=== PATIENT | female | born 1955 | race Caucasian/White ===

== ENCOUNTER 2017-04-06 12:22 | Observation (INO) | payer MEDICARE ==
[~2017-04-06] VITALS: Ht 165.1 cm; Wt 179.6 kg
[~2017-04-06 12:22] MED LIST: ADULT LOW DOSE81 MG; AMLODIPINE BESY10 MG PO; ASPIR 8181 MG PO; CARVEDILOL12.5 MG PO; CLEOCIN HCL150 MG PO; CO Q-10100 MG PO; CO Q10100 MG PO; COZAAR 25 MG TA25 M1 PO; CRESTOR40 MG PO; Co Q10 PO; DOXYCYCLINE 10100 MG PO; FISH OIL 1,0001 EAC5 PO; FLEXERIL PO; FUROSEMIDE 80 M80 M1 PO; GABAPENTIN 100100 MG PO; GLIPIZIDE XL5 MG PO; GLUCOPHAGE XR500 MG; HYDRALAZINE 2525 MG PO; HYDROCODONE-AP1 EAC6 PO; LASIX 20 MG TAB20 MG PO; LASIX 40 MG TAB40 M2 PO; LEVEMIR SUBQ; LISINOPRIL40 MG; LYRICA 50 MG50 MG PO; LYRICA 75 MG CA75 MG PO; MULTIVITAMINS PO; MULTIVITAMINS1 EAC7 PO; NEURONTIN 300300 M1 PO; NORCO 5-325 TA1 EACH PO; NOVOLOG100 UNIT/1 SUBQ; PRAVASTATIN SOD10 MG PO; PRAVASTATIN SOD20 MG PO; PRINIVIL40 MG PO; RENA-VITE RX T1 EACH PO; RENVELA800 MG PO; TRICOR145 MG; VANCO 500500 MG/100 IV; VERAPAMIL ER180 MG; VICODIN 5-3001 EACH PO; VITAMIN B-12500 MCG PO; VITAMIN E400 UNIT PO; VITAMINC500 PO; ZAROXOLYN 5MG TA5 MG PO
[2017-04-06 13:20] LABS: ABSOLUTE BASOPHILS 0.2 thou/uL (0.0-0.2); ABSOLUTE EOSINOPHILS 0.3 thou/uL (0.0-0.7); ABSOLUTE LYMPHOCYTES 2.3 thou/uL (0.8-5.3); ABSOLUTE MONOCYTES 0.7 thou/uL (0.0-1.2); ABSOLUTE NEUTROPHILS 9.6 thou/uL (1.6-8.1); BASOPHILS 1.4 %; EOSINOPHILS 2.6 %; HEMATOCRIT 29.7 % (37.0-47.0); HEMOGLOBIN 9.2 gm/dL (12.0-15.0); LYMPHOCYTES 17.7 %; MCH 28.4 pg (26.0-34.0); MCHC 31.1 g/dL (28.0-37.0); MCV 91.3 fL (80.0-100.0); MONOCYTES 5.5 %; MPV 9.8 fl. (7.2-11.1); NUCLEATED RBCS 0 /100WBC; PLATELET COUNT* 237 thou/uL (150-400); POLYS 72.8 %; RBC 3.25 mil/uL (4.20-5.00); RDW-CV 19.3 % (10.5-14.5); WBC 13.2 thou/uL (4.0-11.0)
[2017-04-06 13:28] LABS: CALCIUM 7.7 mg/dL (8.5-10.1); CREATININE 7.1 mg/dL (0.6-1.3); POTASSIUM 4.9 mmol/L (3.5-5.1)
[2017-04-06 13:33] LABS: ALBUMIN 2.6 g/dL (3.4-5.0); TOTAL BILIRUBIN 0.5 mg/dL (<0.1-1.0); TOTAL PROTEIN 8.3 g/dL (6.4-8.2)
[2017-04-06 13:50] VITALS: BP 126/27
[2017-04-06 17:11] VITALS: BP 117/48
[2017-04-06 17:39] VITALS: BP 112/51
[2017-04-07] VITALS: BP 136/64
[2017-04-07 04:34] LABS: HEMATOCRIT 28.7 % (37.0-47.0); MCH 28.5 pg (26.0-34.0); MCHC 31.3 g/dL (28.0-37.0); MCV 91.3 fL (80.0-100.0); MPV 9.4 fl. (7.2-11.1); RBC 3.14 mil/uL (4.20-5.00); RDW-CV 19.7 % (10.5-14.5)
[2017-04-07 04:39] LABS: CALCIUM 7.6 mg/dL (8.5-10.1); CREATININE 8.5 mg/dL (0.6-1.3); POTASSIUM 5.4 mmol/L (3.5-5.1)
[2017-04-07 08:25] VITALS: BP 111/40
[2017-04-07 12:10] VITALS: BP 111/40
--- NOTE | 2017-04-27 14:35 | OP ---
[address] [address] OPERATIVE REPORT Name: HARDEEP JUNIOR Room: [address] Corwin Gomez#: [id number] Admission: 04/06/17 Attend Phys: Fish Canales MD Discharge: 04/07/17 Date of : 59 Report #: [id number] THIS REPORT FOR: //name// CC: Fish Rodriguez DATE OF SERVICE: 04/06/2017 PREOPERATIVE DIAGNOSIS: Peripheral vascular disease with gangrene, left lower extremity heel. ADDITIONAL PREOPERATIVE DIAGNOSIS: History of steal syndrome, left upper extremity with plans for future AV dialysis access. POSTOPERATIVE DIAGNOSIS: Peripheral vascular disease with gangrene, left lower extremity heel. SURGEON: Niko Marcos DO. TERMINAL OPERATOR: None. PROCEDURE: 1. Ultrasound-guided access, right common femoral artery. 2. Aortogram and left lower extremity angiogram with CO2 contrast and minimal contrast dye technique, left lower extremity, catheter position third order. 3. Aortic arch angiogram. 4. Selective catheterization of the left subclavian artery with left upper extremity arteriogram. 5. Limited angiogram, right common femoral artery. 6. StarClose, right common femoral artery. ESTIMATED BLOOD LOSS: Minimal. SPECIMEN: None. COMPLICATIONS: None. CONDITION: Stable. DISPOSITION: Home. INDICATIONS FOR THE PROCEDURE AND CONSENT: The patient is a 61-year-old female with end-stage renal disease, requiring hemodialysis. She has a Charcot deformity of her bilateral feet and has developed left heel necrosis. She has a history of peripheral vascular disease and non-compressible small vessels on [address] [place] [address] OPERATIVE REPORT Name: HARDEEP JUNIOR Room: [address] Jason#: [id number] Admission: 04/06/17 Attend Phys: Fish Canales MD Discharge: 04/07/17 Date of : 59 Report #: [id number] VINNIE. She also has diminished monophasic signals on physical exam and absent signal over posterior tibial. Additionally, she has a history of left upper extremity dialysis access that resulted in steal syndrome. There was concern and possible brachial artery stenosis may be reason for this steal. Recommendation for left lower extremity angiogram and possible intervention and attempt for salvage of her left foot as well as left upper extremity arteriogram at the same time to evaluate for brachial arch stenosis was recommended. Risks and benefits were discussed, infection, bleeding, need for additional procedures, stroke, heart attack, . The patient wished to proceed, was consented and scheduled. PROCEDURE IN DETAIL: After timeout was performed, the patient was placed in supine position with sterile prep and drape of the anterior abdomen, bilateral groins, bilateral thighs. her large pannus was taped prior to being sterilely prepped and draped. The right groin was then interrogated with ultrasound and the common femoral artery was identified and Seldinger technique was used to place a 6-Palestinian sheath. Glidewire Advantage and Omniflush catheter were advanced into the infrarenal aorta and CO2 angiogram was performed as a prolonged procedure with potentially 2 different extremities was planned and CO2 was used to avoid unnecessary contrast loads. CO2 arteriogram demonstrated the aorta, bilateral common internal and external iliac arteries to be patent. The Omniflush catheter was brought down to the aortogram position and left lower extremity angiogram was performed to the level of the knee. This demonstrated the common femoral, profunda and superficial femoral artery to be widely patent without flow limitation, popliteal artery was normal visualized. The Glidewire Advantage and Omniflush catheter were then advanced into the distal superficial femoral artery under fluoroscopic guidance and CO2 angiography performed. This did demonstrate the popliteal artery to be patent. The tibial vessels were visualized and the posterior tibial vessel origin was absent. At this point, I used 20% contrast for the tibial vessels. The tibial vasculature demonstrated the anterior tibial artery to be patent to the ankle without flow limitation or stenosis. The peroneal vessel was also patent but small. The posterior tibial vessel was not present and the origin was not visualized and no distal reconstitution was identified. Distal angiography demonstrated minimal flow past the mid foot from the anterior tibial artery predominantly. There was really no flow to the heel in the area of necrosis. I determined that there was no intervention that would improve this patient's blood flow or outcome regarding the wound. I then turned my attention to the left upper extremity arteriogram. I then advanced the Glidewire Advantage and Omniflush [place] [address] OPERATIVE REPORT Name: JUNIORHARDEEP E Room: [address] Corwin Gomez#: [id number] Admission: 04/06/17 Attend Phys: Fish Canales MD Discharge: 04/07/17 Date of : 59 Report #: [id number] arch after giving the patient 6000 units of heparin and allowing for 3 minutes. I then performed a thoracic arch angiogram, which demonstrated the aorta to be widely patent as were the origins of the innominate, left carotid, and left subclavian vessel. This was simply done to identify the origin of left subclavian vessel for selective catheterization. I then was able to be negotiate the Omniflush catheter and Glidewire Advantage into the subclavian vessel and a selective left upper extremity arteriogram was performed. This demonstrated the subclavian, axillary, and brachial arteries to be widely patent without flow limitation or stenosis. The brachial artery did appear somewhat small. I did not find anything other than the small caliber or vessel to account for her significant steal and pain that she had previously. Having identified no opportunity for intervention, I replaced the Glidewire Advantage to the catheter and then removed both from the patient. I then performed a limited angiogram of the right common femoral artery and it was noted to be appropriate for closure device, I then selected closure device and deployed in a standard fashion and pressure was held for additional hemostasis. The patient tolerated the procedure well. All lap, needle and instrument counts correct. <ELECTRONICALLY SIGNED> By: Niko Marcos DO 04/27/17 1435 1631 [id number] Marcos DO /nt
== END 2017-04-07 13:30 | disposition home health service (06) ==
LOC: M.INT 12:22 → M.3W 15:28
PROVIDERS: Surgery; ADMIT Internal Medicine
DX: I73.9 Peripheral vascular disease, unspecified (principal); E11.621 Type 2 diabetes mellitus with foot ulcer; L97.429 Non-pressure chronic ulcer of left heel and midfoot with unspecified severity; T82.9XXA Unspecified complication of cardiac and vascular prosthetic device, implant and graft, initial encounter; E78.00 Pure hypercholesterolemia, unspecified; E66.01 Morbid (severe) obesity due to excess calories; E11.22 Type 2 diabetes mellitus with diabetic chronic kidney disease; I12.0 Hypertensive chronic kidney disease with stage 5 chronic kidney disease or end stage renal disease; N18.6 End stage renal disease; Z99.2 Dependence on renal dialysis; Z79.4 Long term (current) use of insulin

== ENCOUNTER 2017-04-15 16:15 | Emergency (ER) | payer MEDICARE ==
[~2017-04-15] VITALS: Ht 165.1 cm; Wt 104.3 kg
[2017-04-15 18:05] VITALS: BP 129/66
== END 2017-04-15 18:05 | disposition home or self-care (01) ==
LOC: M.ERS 16:15
DX: T82.838A Hemorrhage due to vascular prosthetic devices, implants and grafts, initial encounter (principal); I12.9 Hypertensive chronic kidney disease with stage 1 through stage 4 chronic kidney disease, or unspecified chronic kidney disease; E11.22 Type 2 diabetes mellitus with diabetic chronic kidney disease; N18.4 Chronic kidney disease, stage 4 (severe); Z99.2 Dependence on renal dialysis; E78.00 Pure hypercholesterolemia, unspecified; Z79.4 Long term (current) use of insulin; Z85.828 Personal history of other malignant neoplasm of skin; Z87.01 Personal history of pneumonia (recurrent); Z98.890 Other specified postprocedural states; Y92.89 Other specified places as the place of occurrence of the external cause

== ENCOUNTER 2017-05-02 13:20 | Inpatient (IN) | payer MEDICARE ==
[~2017-05-02] VITALS: Ht 165.1 cm; Wt 107.1 kg
[2017-05-02 13:43] VITALS: BP 137/76
[2017-05-02 14:19] LABS: ABSOLUTE EOSINOPHILS 0.3 thou/uL (0.0-0.7); ABSOLUTE MONOCYTES 0.7 thou/uL (0.0-1.2); ABSOLUTE NEUTROPHILS 10.4 thou/uL (1.6-8.1); BASOPHILS 0.3 %; EOSINOPHILS 2.5 %; HEMATOCRIT 25.8 % (37.0-47.0); HEMOGLOBIN 8.1 gm/dL (12.0-15.0); LYMPHOCYTES 14.8 %; MCH 28.9 pg (26.0-34.0); MCHC 31.6 g/dL (28.0-37.0); MCV 91.5 fL (80.0-100.0); MONOCYTES 5.4 %; MPV 8.2 fl. (7.2-11.1); NUCLEATED RBCS 0 /100WBC; PLATELET COUNT* 330 thou/uL (150-400); RBC 2.82 mil/uL (4.20-5.00); RDW-CV 19.9 % (10.5-14.5); WBC 13.6 thou/uL (4.0-11.0)
[2017-05-02 14:28] LABS: APTT 30.6 Seconds (25.0-31.3); INR 1.1; PROTIME 10.9 Seconds (9.20-11.50)
[2017-05-02 14:30] VITALS: BP 128/66
[2017-05-02 14:31] LABS: ANION GAP 18 mmol/L (7-16); BUN 59 mg/dL (7-18); CHLORIDE 96 mmol/L (98-107); CO2 24 mmol/L (21-32); CREATININE 12.6 mg/dL (0.6-1.3); GLUCOSE 123 mg/dL (70-99); SODIUM 138 mmol/L (136-145)
[2017-05-02 14:33] LABS: CALCIUM 5.8 mg/dL (8.5-10.1)
[2017-05-02 14:35] LABS: POTASSIUM 7.6 mmol/L (3.5-5.1)
[2017-05-02 14:36] LABS: ALBUMIN 2.3 g/dL (3.4-5.0); ALKALINE PHOSPHATASE 102 U/L (46-116); SGOT 19 U/L (15-37); TOTAL BILIRUBIN 0.3 mg/dL (<0.1-1.0); TOTAL PROTEIN 7.5 g/dL (6.4-8.2); TROPONIN-I LEVEL <0.06 ng/mL (<0.06)
--- NOTE | 2017-05-02 16:52 | EKG ---
[place] [address] ELECTROCARDIOGRAM REPORT Name: JUNIORHARDEEP Room: [address] ADM IN .R.#: [id number] Admission: 05/02/17 Attend Phys: Laith Hollis MD Discharge: Date of : 59 Report #: [id number] THIS REPORT FOR: //name// [facility] ED Test Date: 2017-05-02 Test Time: 13:52:11 Pat Name: HARDEEP JUNIOR Department: Room: [facility] Gender: F Conference Services Manager: Mingo CARRIZALES : 1955 Requested By: Jeremie Awan Order Number: [id number] MD: Mono Davey Measurements Intervals [place] Rate: 85 P: SD: QRS: -33 QRSD: 151 T: 100 QT: 478 QTc: 569 Interpretive Statements sinus rhythm with 1st degree av block Left bundle branch block Compared to ECG 04/02/2016 00:14:08 Short SD interval no longer present Electronically Signed On 05-02-2017 16:52:06 SYRUP BLENDER by Mono Davey [email or web address] <ELECTRONICALLY SIGNED> By: Mono Davey MD, FAC 05/02/17 1652 1352 1352 Mono Davey MD, [facility] /EPI
[2017-05-02 17:44] LABS: POTASSIUM 6.8 mmol/L (3.5-5.1)
[2017-05-02 17:45] LABS: CALCIUM 5.6 mg/dL (8.5-10.1)
--- NOTE | 2017-05-02 19:00 | NUR ---
PROGRESSING TOWARDS GOALS. CARDIZEM AND LEVOPHED TURNED OFF WITHIN THE LAST HOUR. VSS AT THIS TIME. FLUIDS D/C'D AND ORDER RECEIVED FROM CARDIOLOGY TO D/C CENTRAL LINE. PT UP TO BEDSIDE COMMODE SEVERAL TIMES THIS AFTERNOON. NO OTHER COMPLAINTS DURING THE DAY. PT ATE VERY LITTLE AND REPORTS NO APPETITE.
[2017-05-02 20:00] VITALS: BP 98/85
[2017-05-02 22:00] VITALS: BP 104/46
[2017-05-03] VITALS (7 sets, daily range): BP systolic 95–141; BP diastolic 42–59
[2017-05-03 04:54] LABS: ABSOLUTE BASOPHILS 0.1 thou/uL (0.0-0.2); ABSOLUTE EOSINOPHILS 0.3 thou/uL (0.0-0.7); ABSOLUTE LYMPHOCYTES 1.8 thou/uL (0.8-5.3); ABSOLUTE MONOCYTES 0.7 thou/uL (0.0-1.2); ABSOLUTE NEUTROPHILS 8.8 thou/uL (1.6-8.1); EOSINOPHILS 2.8 %; HEMATOCRIT 24.6 % (37.0-47.0); HEMOGLOBIN 7.9 gm/dL (12.0-15.0); LYMPHOCYTES 15.2 %; MCH 29.4 pg (26.0-34.0); MCHC 32.2 g/dL (28.0-37.0); MCV 91.2 fL (80.0-100.0); MONOCYTES 6.2 %; MPV 8.2 fl. (7.2-11.1); NUCLEATED RBCS 0 /100WBC; PLATELET COUNT* 304 thou/uL (150-400); POLYS 74.8 %; RDW-CV 20.4 % (10.5-14.5); WBC 11.8 thou/uL (4.0-11.0)
[2017-05-03 05:10] LABS: CALCIUM 6.6 mg/dL (8.5-10.1)
[2017-05-03 05:25] LABS: CREATININE 7.4 mg/dL (0.6-1.3); POTASSIUM 5.7 mmol/L (3.5-5.1)
[2017-05-03 06:18] LABS: ANISOCYTOSIS 2+; PLATELET ESTIMATE ADEQUATE
[2017-05-03 06:19] LABS: POLYCHROMASIA 1+
--- NOTE | 2017-05-03 07:43 | NUR ---
PATIENT PROGRESSING TOWARDS GOALS. K+ TRENDING DOWN. PT DIALYSIS 3L OFF. TOLERATED WELL. BP, HR, RR, O2 REMAINED WNL. PT HAD NO ACUTE CHANGES OVER NIGHT. VOIDED 20ML. TEMP DIALYSIS ON RIGHT GROIN INTACT. PT IS VERY TEARFUL. CONSTENT EDUCATION AND REINFORCEMENT NEEDED TO EASE ANXIETY. PT HAS WOUND IN LOWER EXTREMITIES. PICTURES IN CHART. WOUND CONSULT COMPLETED. WILL CONTINUE TO MONITOR. POSSIBLE TELE STATUS.
--- NOTE | 2017-05-03 11:27 | NUR ---
CHART REVIEWED, SPOKE WITH PT. PT LIVES ALONE, STATES HAS SUPPORTIVE FRIENDS THAT HELP HER. SHE DIALYZES M-W-F AT [facility]. SHE GETS TO DIALYSIS BY [facility]. SHE SAID THAT HER FOOT DOCTOR DOESN'T WANT HER TO PUT ANY WEIGHT ON HER FOOT, 'I HAVE A WOUND AND HE'S AFRAID IT WILL SPLIT OPEN.' PT SAID SHE TRANSFERS INDEP INTO HER W/C, IS ABLE TO GET AROUND HER HOUSE IN HER W/C, ABLE TO TRANSFER TO HER SHOWER CHAIR, TRANSFER TO THE TOILET, ETC. SHE HAS A TREE AND SHRUB TECHNICIAN THAT COMES EVERY TUESDAY TO CLEAN. SHE HAS PRIVATE DUTY THRU [employer] THAT COME FOR SEVERAL HOURS ON AND AND HELP HER WITH COOKING, SHOPPING, ETC. PT PLANS ON RETURNING HOME ALONE, SHE SAID 'EVERYTHING IS SET AT HOME AND I DO GREAT.' EXPLAINED ROLE OF CASE MGT, WILL CONTINUE TO FOLLOW.
--- NOTE | 2017-05-03 11:31 | NUR ---
RECEIVED REPORT FROM HARLAN MULLEN. ASSESSMENT CHARTED. AFEBRILE. VITALS STABLE. PT TELE STATUS. WILL CONTINUE TO MONITOR.
[2017-05-03 14:12] LABS: HEPATITIS B SURFACE AG Negative (Negative)
--- NOTE | 2017-05-03 17:17 | NUR ---
WOUND CARE NOTE: CONSULT RECEIVED FOR DIABETIC WOUND. PATIENT PRESENTS WITH A UNSTAGEABLE PRESSURE ULCER TO HER LEFT FOOT, MEDIALLY. WOUND MEASURES 4X8.5X0.1. 99% OF THE WOUND IS BLACK, DRY, ESCHAR. 1% WITH YELLOW, MOIST TISSUE. WOUND WAS CLEANSED WITH WOUND CLEANSER, PATTED DRY. PAINTED WITH BETADINE AND ALLOWED TO DRY. FOOT IS OFFLOADED APPROPRIATELY WITH PILLOWS. EDUCATED PATIENT ON KEEPING FOOT UP OFF OF THE BED TO ASSIST WITH HEALING, COMMUNICATED UNDERSTANDING. PATIENT COMMUNICATED UNDERSTANDING OF GOOD NUTRITION FOR WOUND HEALING. EDUCATED PATIENT ON FINDINGS OF WOUND, COMMUNICATED UNDERSTANDING. RECOMMEND OFFLOAD HEEL PAINT WITH BETADINE M-- ENCOURAGE GOOD NUTRITION AND HYDRATION TIGHT BLOOD GLUCOSE CONTROL VASCULAR TO ASSESS HEEL WOUND-SEES DR. ZUÑIGA IN WOUND CENTER
--- NOTE | 2017-05-03 18:08 | NUR ---
PT TRANSFERED TO UNIT AROUND 1730 PT IS ALERT AND ORIENTED X 3-4 PT DENIES PAIN OR SOA PT IS INCONTIENT OF BOWEL AND BLADDER PT ON DIALYSIS PT HAS WOUND ON LEFT HEEL PT HAS BOOT ON RIGHT LEG FROM PREVIOUS FRACTURE PT REFUSES TO LET STAFF TAKE BOOT OFF PT POTASSIUM IS ELEVATED PT HAS KAYEXULATE PT IS REFUSING TO TAKE KAYEXULATE KEEP REEDUCATING PT ON THE IMPORTANCE OF TAKING MEDICATION, PT BEHAVIOR IS INAPPRPIRATE PT IS UNCORRAPATIVE, PT IS SR ON MONITOR, WILL CONTINUE TO MONITOR
--- NOTE | 2017-05-03 18:36 | NUR ---
REPORT GIVEN TO JERMAINE RUIZ RN. PT TRANSFERRED TO ROOM 230 AROUND 1700. BELONGINGS WITH PT AND ALL QUESTIONS ANSWERED.
[2017-05-04 04:03] VITALS: BP 104/53
[2017-05-04 05:24] LABS: ABSOLUTE BASOPHILS 0.1 thou/uL (0.0-0.2); ABSOLUTE EOSINOPHILS 0.3 thou/uL (0.0-0.7); ABSOLUTE LYMPHOCYTES 2.3 thou/uL (0.8-5.3); ABSOLUTE NEUTROPHILS 6.6 thou/uL (1.6-8.1); BASOPHILS 1.2 %; EOSINOPHILS 3.2 %; HEMATOCRIT 24.2 % (37.0-47.0); HEMOGLOBIN 7.9 gm/dL (12.0-15.0); LYMPHOCYTES 22.3 %; MCH 29.9 pg (26.0-34.0); MCHC 32.5 g/dL (28.0-37.0); MCV 91.9 fL (80.0-100.0); MONOCYTES 9.7 %; MPV 8.1 fl. (7.2-11.1); NUCLEATED RBCS 0 /100WBC; PLATELET COUNT* 246 thou/uL (150-400); POLYS 63.6 %; RBC 2.64 mil/uL (4.20-5.00); RDW-CV 20.4 % (10.5-14.5); WBC 10.3 thou/uL (4.0-11.0)
[2017-05-04 05:37] LABS: ALBUMIN 2.1 g/dL (3.4-5.0); CALCIUM 6.6 mg/dL (8.5-10.1); POTASSIUM 5.8 mmol/L (3.5-5.1); TOTAL BILIRUBIN 0.4 mg/dL (<0.1-1.0); TOTAL PROTEIN 6.9 g/dL (6.4-8.2)
[2017-05-04 05:40] LABS: CREATININE 9.5 mg/dL (0.6-1.3)
[2017-05-04 06:38] LABS: ANISOCYTOSIS 2+; POLYCHROMASIA 1+
[2017-05-04 07:54] VITALS: BP 124/42
--- NOTE | 2017-05-04 07:56 | NUR ---
PT IS ABLE TO COMMUNICATE HER NEEDS TO STAFF EFFECTIVELY, BUT OFTEN CRIES OUT INSTEAD OF USING HER CALL LIGHT. CURRENT PAIN MEDICATION REGIMEN HAS BEEN ADEQUATE FOR CONTROLLING HER PAIN UP TO THIS TIME. SHE CAN BE VERY SENSITIVE TO BEING MOVED AND WILL NOT LET ANYONE TAKE OFF HER PURPLE BOOT. SHE IS TENTATIVELY SCHEDULED TO HAVE HEMODIALYSIS LATER TODAY; SHE HAS BEEN CURRENTLY RECEIVING DIALYSIS ON A M/W/F SCHEDULE.
--- NOTE | 2017-05-04 09:10 | NUR ---
VSS, ASSUMED CARE IN THE AM, ASSESSMENT PERFORMED AND CHARTED, FALL PRECAUTIONS IN PLACE AND CALL LIGHT IN REACH, PT IS UP WITH MAX ASSIST AND HAS WOUND ON LEFT HEAL AND FRACTUR ON RIGHT ANKEL, BOOT IS ON RIGHT AND OILLOW UNDER LEFT LEG WITH FOOT OFF BED, PT IS ON 2L NC AND STATES PAIN IN LEGS/FEET. SHE IS TRACING SR ON THE MONITOR AND HER GAOL IS TO SIT UP, WORK WITH PT/OT AND GET CLEANED UP.
[2017-05-04 12:03] VITALS: BP 81/43
[2017-05-04 14:43] VITALS: BP 81/43
--- NOTE | 2017-05-04 15:01 | CON ---
[facility] [address] [place] [address] CONSULTATION Name: HARDEEP JUNIOR Room: [address] IN .R.#: [id number] Admission: 05/02/17 Attend Phys: Laith Hollis MD Discharge: Date of : 59 Report #: [id number] THIS REPORT FOR: //name// CC: Laith Patel Parker DATE OF SERVICE: 05/02/2017 REQUESTING PHYSICIAN: Laith Hollis M.D. REASON FOR CONSULTATION: Management of the patient with end-stage renal disease for dialysis and hyperkalemia. HISTORY OF PRESENT ILLNESS: The patient is a 61-year-old female with medical history significant for end-stage renal disease. She presents to the hospital on Tuesday with not working dialysis catheter. The patient once found to have very significant hyperkalemia and was emergently dialyzed yesterday. She had temporary dialysis catheter placed yesterday and that will be converted to tunneled dialysis catheter tomorrow by Vascular Surgeon. PAST MEDICAL HISTORY: Significant for peripheral vascular disease, end-stage renal disease and anemia. She also had diabetes mellitus, history of hypertension. FAMILY HISTORY AND SOCIAL HISTORY: Reviewed. No current alcohol abuse and tobacco abuse. PHYSICAL EXAMINATION: GENERAL: Examined in Intensive Care Unit. She is awake, alert. VITAL SIGNS: Reviewed. NECK: Fatty. LUNGS: Clear. CARDIOVASCULAR: Regular rate. ABDOMEN: Obese, soft. EXTREMITIES: Lower extremities without edema. SKIN: Her skin is pale. LABORATORY DATA: Report revealed potassium 7.6 yesterday and today was 5.7. Her BUN 29, creatinine 7.4. Her hemoglobin 7.9. ASSESSMENT: A 61-year-old female with end-stage renal disease, admitted for missed dialysis treatments, hyperkalemia and nonfunctioning tunneled dialysis catheter. She had temporary dialysis catheter placed [place] [address] CONSULTATION Name: HARDEEP JUNIOR Room: [address]#: [id number] Admission: 05/02/17 Attend Phys: Laith Hollis MD Discharge: Date of : 59 Report #: [id number] dialyze if potassium is better. We will give her more Kayexalate today and dialyze her tomorrow. Vascular will place tunneled dialysis catheter tomorrow. <ELECTRONICALLY SIGNED> By: Jarvis Rothman MD 05/04/17 1501 1458 0031Ahayden Rothman MD /ABBY
[2017-05-04 16:00] VITALS: BP 106/29
--- NOTE | 2017-05-04 19:59 | NUR ---
VSS, PT WAS TAKEN TO DIALYSIS, NO STATUS CHANGE AT THIS TIME AND HOURLY ROUNDS COMPLETED,
[2017-05-05] VITALS (9 sets, daily range): BP systolic 90–111; BP diastolic 30–58
--- NOTE | 2017-05-05 05:14 | NUR ---
PT IS ABLE TO COMMUNICATE HER NEEDS TO STAFF EFFECTIVELY, HOWEVER, SHE YELLS OUT AND DOES NOT USE THE CALL LIGHT MOST OF THE TIME. CURRENT PAIN MEDICATION REGIMEN HAS BEEN ADEQUATE FOR CONTROLLING HER PAIN UP TO THIS TIME. SHE HAD A HEMODIALYSIS RUN ON 05/04/17, 2.5L OFF. SHE HAS BEEN NPO SINCE MIDNIGHT FOR A NEW TEMPORARY DIALYSIS CATH PLACEMENT LATER TODAY.
[2017-05-05 05:46] LABS: ALBUMIN 2.1 g/dL (3.4-5.0); CALCIUM 7.5 mg/dL (8.5-10.1); CREATININE 6.9 mg/dL (0.6-1.3); POTASSIUM 5.2 mmol/L (3.5-5.1); TOTAL BILIRUBIN 0.5 mg/dL (<0.1-1.0); TOTAL PROTEIN 7.2 g/dL (6.4-8.2)
--- NOTE | 2017-05-05 11:00 | NUR ---
VSS, ASSUMED CARE IN THE AM, ASSESSMENT PERFORMED AND CHARTED FALL PRECAUTIONS IN PLACE AND CALL LIGHT IN REACH, PT IS MAX ASSIST UP AND REFUSES TO GET UP TO SIDE OF BED, PT STATES HAVING A LOT OF PAIN IN LEGS, 10 OUT OF 10 WHEN MOVED, PT GOAL IS TO SIT UP, DIALYSIS CATH IN RIGHT CHEST AND GRION NOTED, PT IS ON 1L NC AND IS A&O3-4 FORGEFUL, LEFT FOOT HAS HEAL WOUND AND RIGHT FOOT HAS SURGETY BOOT, PT REFUSES TO LET ME TAKE OFF BOOT STATING IT HERTS TO MUCH, WILL FOLLOW WITH PLAN OF CARE.
--- NOTE | 2017-05-05 11:33 | NUR ---
CONTINUE TO FOLLOW, MET WITH PT. TO HAVE TUNNELED CATH TODAY AND POSSIBLE DC TOMORROW. PT STATES SHE HAS HOME O2 AT NIGHT THRU [facility] AND IS FOLLOWED AT HOME BY [facility]. CONFIRMED WITH D[facility] THAT PT IS ON SERVICE, THEY WILL NEED NEW ORDERS AT DC. PT STATES SHE USES [facility] TO GET TO DIALYSIS MWF. CALL TO [facility], THEY WILL NEED H/P, FLOW SHEETS AND DC ORDERS FAXED TO THEM WELL CALL WHEN DC'D. WILL FOLLOW [facility] [phone] FAX [phone] [facility] [phone] FAX [phone]
--- NOTE | 2017-05-05 18:54 | NUR ---
VSS, PT IS PROGRESSIING TOWARDS, PT IS ON RA, TRACINGS SR ON THE MONIOTR BED REST REFUSES BED TURNS, WILL NOT LET ANYONE TAKE OFF RIGHT SURGICAL BOOT, RIGHT GRION DIALYSIS CATH WAS TAKEN OUT SITE IS C/D/I, PT HAS RIGHT CHEST CATH IN PLACE, PT IS A&O3-4 BUT FORGETFUL, STATES LEG PAIN AND HOURLY ROUNDS COMPLETED.
[2017-05-06] VITALS (8 sets, daily range): BP systolic 88–127; BP diastolic 33–63
--- NOTE | 2017-05-06 04:21 | NUR ---
ASSUMED PT CARE AT 1930, PT IS A&OX4, PT IS TRACING NSR ON THE MONITOR, ON 1L NC SATTING MID TO HIGH 90'S. PT C/O PAIN PRN PAIN MEDICATIOSN GIVEN PER JUN. PT HAS A TEMP DIALYSIS CATH INSERTED INTO HER RIGTH CHEST. PT HAS HEEL WOUNDS. PT WAS C/O OF RIGHT LEG HURTING, THIS RN ASKED IF I WAS ABLE TO TAKE OFF HER BOOT, THE PT STATED YES, BUT SHE SHE WANTED HER CHRIS WRAP TO STAY IN [place]. HEELS ELEVATED ON PILLOWS, PT IS TURNED AND REPOSITIONED EVERY 2 HOURS TO PREVENT SKIN BREAKDOWN. BED IN LOW POSITION, CALL LIGHT IN REACH, BED ALARM ON, YELLOW ARM BAND AND SOCKS IN PLACE. HOURLY ROUNDING COMPLETED FOR PT SAFETY.
--- NOTE | 2017-05-06 09:00 | NUR ---
VSS, ASSUMED CARE IN THE AM, ASSESSMENT PERFORMED AND CALL LIGHT IN REACH, PT IS TRACING SR ON THE MONITOR, ON 1L NC AND A&O4, PT HAS PAIN IN LOWER LEGS AND IS BED REST, PT GOAL IS TO SIT UP TO SIT OF BED, PT IS TO HAVE DIALYSIS TODAY, SHE REFUSES BED TURNS AT TIMES, WILL FOLLOW WITH PLAN OF CARE,
[2017-05-06 09:58] LABS: ABSOLUTE BASOPHILS 0.2 thou/uL (0.0-0.2); ABSOLUTE EOSINOPHILS 0.3 thou/uL (0.0-0.7); ABSOLUTE LYMPHOCYTES 2.4 thou/uL (0.8-5.3); ABSOLUTE NEUTROPHILS 8.2 thou/uL (1.6-8.1); BASOPHILS 1.6 %; EOSINOPHILS 2.8 %; HEMATOCRIT 24.5 % (37.0-47.0); HEMOGLOBIN 7.6 gm/dL (12.0-15.0); LYMPHOCYTES 19.8 %; MCHC 31.1 g/dL (28.0-37.0); MCV 93.3 fL (80.0-100.0); MONOCYTES 7.9 %; MPV 8.9 fl. (7.2-11.1); NUCLEATED RBCS 0 /100WBC; PLATELET COUNT* 207 thou/uL (150-400); POLYS 67.9 %; RBC 2.63 mil/uL (4.20-5.00); RDW-CV 20.7 % (10.5-14.5); WBC 12.1 thou/uL (4.0-11.0)
[2017-05-06 10:12] LABS: ALBUMIN 2.3 g/dL (3.4-5.0); CALCIUM 7.4 mg/dL (8.5-10.1); TOTAL BILIRUBIN 0.5 mg/dL (<0.1-1.0)
[2017-05-06 10:24] LABS: ANISOCYTOSIS 2+; HYPOCHROMASIA 2+; PLATELET ESTIMATE ADEQUATE
--- NOTE | 2017-05-06 13:28 | NUR ---
TALKED WITH WOUND CARE NURSE AND PT. IS ABLE TO TRANSFER ON L FOREFOOT FOR PIVOT TRANSFERS AT THIS TIME. CALLED [facility] AND LEFT A MESSAGE FOR DR. HEADLEY TO CLARIFY R LE WB STATUS DUE TO ANKLE FX.
--- NOTE | 2017-05-06 16:12 | NUR ---
IGOR SPOKE TO DELVIN AT [facility] AND SHE INFROMS THAT THE FACILITY IS ABLE TO ACCEPT THE PATIENT TOMORROW (2). CM SPOKE TO THE PATIENT AND THE RN IN-CHARGE OF THE PATIENT TO INFORM OF THIS AND THEY ARE IN AGREEMENT. CM WILL REMAIN AVAILABLE TO ASSIST AND FOLLOW NEEDED.
--- NOTE | 2017-05-06 17:31 | NUR ---
VSS, PT IS PROGRESSING TOWARDS, PT IS TO BE D/C TO SNF TOMORROW, SHE IS IN DIALYSIS AT THIS TIME, SHE WORKED WITH PT/OT AND SAT UP TO BEDSIDE FOR 5 MIN AND THEN RIGHT BACK IN BED, HOURLY ROUNDS COMPLETED AND IS TRACING SR ON THE MONITOR, WILL FOLLOW WITH PLAN OF CARE AND CHARTED CHECKS.
[2017-05-07] VITALS: BP 109/43; BP 123/54
[2017-05-07 04:00] VITALS: BP 105/49
--- NOTE | 2017-05-07 05:06 | NUR ---
ASSUMED CARE OF PATIENT AT APPROX 2029 THE PATIENT REMAINS SR ON THE MONITOR O2 SAT MAINTAINED ON 2L NC CONTINUES BEDREST DOES NOT TOLERATE TOUCH WITH REPOSITIONING ET ADL CARE WELL CRIES OUT AND REPEATS PHRASES AT REST CHILD LIKE BEHAVIOR NOTED TO THE ROUTINE REGIMEN CONTINUES TO BE EFFECTIVE FOR SX MANAGEMENT SAFETY INTERVENTIONS CONTINUE BED LOWERED WHEELS LOCKED CALL LIGHT IN REACH SIDE RAILS UP REPORT TO BE GIVEN TO ONCOMING RN
[2017-05-07 08:00] VITALS: BP 115/50
--- NOTE | 2017-05-07 10:26 | NUR ---
ASSUMED PT CARE AT 0730, FULL ASSESMENT DONE CHARTED. PT A/O X3, FORGETFUL AT TIMES. PT STATES PAIN IS BETTER, SHE C/O PAIN IN LEGS AT 4/10. PTS VSS, SR ON MARY MONITOR, 97% ON 2L O2. PT ASKING ABOUT DISCHARGING TODAY TO A "REHAB FACILITY". DR CLAROS TO SEE PT TODAY. FALL PRECATUIONS IN PLACE. PT USES CALL LIGTH APPRORPIATLY. WILL CONTINUE WITH PLANOF CARE.
[2017-05-07 12:22] VITALS: BP 110/42
--- NOTE | 2017-05-07 12:40 | NUR ---
IGOR SPOKE TO THE RN IN-CHARGE OF THE PATIENT AND SHE INFORMS THAT THE PATIENT HAS DISCHARGE ORDERS AND WILL NEED AMBULANCE TRANSFER. IGOR SPOKE TO DELVIN MORALES TO INFORM THAT THE PATIENT IS READY TO D/C AND WILL ARRIVE BY AMBULANCE TRANSPORT. IGOR CONTACTED [facility], FAXED THE PATIENT TRANSFER FORM AND TO INFORM OF THE NEED FOR TRANSPORTATION AT 1400. CM SPOKE TO THE PATIENT TO INFORM OF HER DISCHARGE. PATIENT IN AGREEMENT. IGOR SPOKE TO THE RN IN-CHARGE OF THE PATIENT AND INFORMED OF THE PATIENTS TIME OF TRANSPORT AND WHERE TO CALL REPORT. CN WILL REMAIN AVAILABLE TO ASSIST AND FOLLOW NEEDED.
--- NOTE | 2017-05-07 13:37 | NUR ---
CM SPOKE TO THE PATIENT TO DISCUSS DISCHARGE PLANNING NEEDS AND CHOICE OF HH. PATIENT CHOSE [facility] FOR HH. CM SPOKE TO NGHIA AT [facility] TO INFORM OF THE REFERRAL AND FAXED THE PATIENTS CLINICAL INFO. NGHIA RETURNS CALL AND INFORMS THAT [facility] IS ABLE TO ACCEPT THE PATIENT AND WILL SEE HER AT HER HOME TOMORROW. CM WILL REMAIN AVAILABLE TO ASSIST AND FOLLOW NEEDED.
--- NOTE | 2017-05-07 14:17 | OP ---
[address] [address] OPERATIVE REPORT Name: HARDEEP JUNIOR Room: [address] IN .R.#: [id number] Admission: 05/02/17 Attend Phys: Laith Hollis MD Discharge: Date of : 59 Report #: [id number] THIS REPORT FOR: //name// CC: Laith Patel Parker DATE OF SERVICE: 05/05/2017 PREOPERATIVE DIAGNOSIS: End-stage renal disease. POSTOPERATIVE DIAGNOSIS: End-stage renal disease. OPERATION: Right IJ tunneled dialysis catheter exchange over the wire. SURGEON: Chacho Wesley DO. DECAL TRANSFERRER: None. ANESTHESIA: Sedation with local. ESTIMATED BLOOD LOSS: Less than 10 mL. FLUIDS: None. URINE OUTPUT: None. SPECIMENS: None. COMPLICATIONS: None. FINDINGS: The right IJ tunneled dialysis catheter was thrombosed. The wires easily passed through the IVC. The catheter was tunneled over these wires under fluoroscopic guidance to ensure no kinks or twist. The catheter aspirated and flushed well without issue. CLINICAL HISTORY: The patient is a 61-year-old woman with end-stage renal disease. She has undergone multiple dialysis interventions, multiple catheters in both the left and right internal jugular veins, multiple access creations. Her right IJ catheter is thrombosed and currently dialyzing through a temporary femoral line in the right groin. I have been asked to exchange the tunnel line. DESCRIPTION OF PROCEDURE: After informed consent has been obtained, the patient was taken to the angio suite, placed on the angio bed in the supine position. She was administered sedation by the nurse at my discretion for a total of 20 minutes. A full timeout was performed identifying correct patient and procedure after the right neck was prepped and draped in usual sterile [place] [address] OPERATIVE REPORT Name: HARDEEP JUNIOR Room: [address] IN [facility]#: [id number] Admission: 05/02/17 Attend Phys: Laith Hollis MD Discharge: Date of : 59 Report #: [id number] cut the ports from the previously placed tunneled dialysis catheter. I used 2 stiff angled Glidewires, one down each port, was passed into the right ventricle. I then anesthetized the skin and subcutaneous tissues around the tunneled track with about 20 mL of lidocaine anesthetic. I then removed the catheter over the wires easily without issue. I then replaced the new 19-cm RetrO tunneled dialysis catheter over the stiff-angle Glidewires through the previous track and passed easily over the wires and this was done under fluoroscopic guidance. The catheter was positioned on the right atrium SVC junction. The wires and stylets were removed. The catheter was then tailored to length. Both ports were applied. Both ports aspirated and flushed well. Both ports were then packed with concentrated heparin. The catheter was then secured to the chest wall with 3-0 Monocryl suture and sterile dressing was applied. All sponge, sharp and instrument counts reported correct times 2. She tolerated the procedure well and was transferred to her room in stable condition. <ELECTRONICALLY SIGNED> By: Niko Marcos DO 05/07/17 1417 1339 [id number] Wesley DO /nt
--- NOTE | 2017-05-07 14:18 | OP ---
[address] [address] OPERATIVE REPORT Name: JUNIORHARDEEP E Room: [address] IN .R.#: [id number] Admission: 05/02/17 Attend Phys: Laith Hollis MD Discharge: Date of : 59 Report #: [id number] THIS REPORT FOR: //name// CC: Laith Patel Parker DATE OF SERVICE: 05/02/2017 PREOPERATIVE DIAGNOSIS: End-stage renal disease, in need of emergent dialysis. POSTOPERATIVE DIAGNOSIS: End-stage renal disease, in need of emergent dialysis. PROCEDURES: 1. Ultrasound guidance for venous access right common femoral vein with image saved. 2. Temporary dialysis catheter placed at the bedside. SURGEON: Bronson Henley MD ELECTRIC SIGN WIRER: None. ANESTHESIA: Local. COMPLICATIONS: None. ESTIMATED BLOOD LOSS: Minimal. INDICATIONS FOR PROCEDURE: The patient is a very pleasant 61-year-old white female who has not dialysed in a week. Her catheter has been clotted. She presents to the ER today with severely elevated potassium and requires emergent dialysis. Unfortunately, it is not safe to perform tunneled dialysis catheter on her today. We will plan for temporary dialysis catheter to allow for dialysis in the next couple of days. Once her potassium is down to normal range, we will reassess her for a new tunneled dialysis catheter. Informed consent was obtained from the patient with risks including, but not limited to bleeding, infection, need for further surgery, pain, , heart attack, stroke. She understood these risks and is agreeable to proceed. At the bedside in the ER, the patient's right groin was prepped and draped in usual sterile fashion. I infused 10 mL of 1% lidocaine in her right groin. Under ultrasound guidance with an image saved, I cannulated the right common femoral vein without difficulty. I used Seldinger technique to exchange out for sequential dilators and then the catheter. Both ports flushed and lavon without difficulty. Catheter was packed with 1000 unit per mL heparin[place] [address] OPERATIVE REPORT Name: HARDEEP JUNIOR Room: [address] IN [facility].#: [id number] Admission: 05/02/17 Attend Phys: Laith Hollis MD Discharge: Date of : 59 Report #: [id number] secured to the skin with nylon stitch. The patient tolerated procedure well, catheter was immediately ready for dialysis. <ELECTRONICALLY SIGNED> By: Niko Marcos DO 05/07/17 1418 1635 [id number] Henley MD /nt
--- NOTE | 2017-05-07 14:18 | CON ---
[address] [address] CONSULTATION Name: HARDEEP JUNIOR Room: [address] IN .R.#: [id number] Admission: 05/02/17 Attend Phys: Laith Hollis MD Discharge: Date of : 59 Report #: [id number] THIS REPORT FOR: //name// CC: Laith Parker DATE OF SERVICE: 05/02/2017 REQUESTING PHYSICIAN: Dr. Awan in the Emergency Room. REASON FOR CONSULTATION: Dialysis catheter nonfunctional for 1 week. HISTORY OF PRESENT ILLNESS: The patient is well known to me. She is a very pleasant 61-year-old white female with end-stage renal disease, on dialysis. She has been a difficult access patient. She is also noncompliant. She re-presented today after nearly a week of not having dialysis due to her catheter not working. When I asked why it took her a week to come in to get her catheter looked at, she said that somebody else was supposed to be calling us and letting us know. Unfortunately, now her potassium is extremely elevated and it is not safe to perform a catheter exchange, she will need a temporary dialysis catheter. REVIEW OF SYSTEMS: A 12-point review of systems reviewed and negative as per HPI. PAST MEDICAL HISTORY: Significant for renal failure, pleural effusions, bronchitis, dyspnea, edema, hyperglycemia, hypertension, hypokalemia, peripheral vascular disease, pulmonary edema. ALLERGIES: No known drug allergies. PAST SURGICAL HISTORY: Significant for multiple access procedures all of which have failed, prior orthopedic surgery with subsequent infection of her hardware and necessitating removal. FAMILY HISTORY: Noncontributory. SOCIAL HISTORY: The patient denies alcohol, tobacco or drug use. PHYSICAL EXAMINATION: GENERAL: The patient is in her usual state of mild distress, crying. HEENT: Normocephalic, atraumatic. VITAL SIGNS: Afebrile, vital signs stable. NECK: Supple. ABDOMEN: The patient is obese, soft, nontender, nondistended. EXTREMITIES: [place] [address] CONSULTATION Name: HARDEEP JUNIOR Room: [address]#: [id number] Admission: 05/02/17 Attend Phys: Laith Hollis MD Discharge: Date of : 59 Report #: [id number] ASSESSMENT: Nonfunctional right internal jugular tunneled dialysis catheter. I flushed both ports, which flushed easily. However, neither port will draw. PLAN: We will plan to proceed with temporary dialysis catheter at the bedside right now so that she can obtain dialysis tonight and tomorrow. Hopefully, they will be able to get her potassium back in the normal range. We will then plan for a new tunneled dialysis catheter in the interventional suite in the next couple of days. Thank you very much for involving me in the care of this very pleasant patient. Please free to call with any questions or concerns about the assessment and plan. <ELECTRONICALLY SIGNED> By: Niko Marcos DO 05/07/17 1418 1633 [id number] Henley MD /nt
--- NOTE | 2017-05-07 15:23 | NUR ---
RECIEVED DISHCARGE ORDERS FROM DR CLAROS, SPOKE TO NEPROLOGY AND OK TO DC FROM THEIR STANDPOINT. DISCHARGE PICS TAKEN OF WOUNDS. PT UNABLE TO STAND, EMS CAME TO GET PT AT APPROX 1400. PTS BELONGINGS SENT WITH PT. HER HOME WHEELCHAIR WAS LEFT AND HER FRIEND IS TO COME PICK IT UP. IT WAS TAGGED AND SENT TO SECURITY FOR THE FRIEND TO STEEPING PRESS OPERATOR. REPORT CALLED TO BRITTANY MORALES, QUESTIONS ANSWERED.
== END 2017-05-07 14:10 | disposition home health service (06) | DRG 314 ==
LOC: M.ERS 13:20 → M.ICU 15:04 → M.TBA-ER 15:04 → M.ICU 16:47 → M.2W 05-03 17:29
PROVIDERS: Emergency Medicine Emergency Medical Services; Internal Medicine Nephrology; ADMIT Internal Medicine
PROC: B54BZZA Ultrasonography of Right Lower Extremity Veins, Guidance (ICD-10-PCS; principal; 2017-05-02)
PROC: 06HM33Z Insertion of Infusion Device into Right Femoral Vein, Percutaneous Approach (ICD-10-PCS; principal; 2017-05-02)
PROC: 5A1D70Z Performance of Urinary Filtration, Intermittent, Less than 6 Hours Per Day (ICD-10-PCS; principal; 2017-05-02)
PROC: 5A1D70Z Performance of Urinary Filtration, Intermittent, Less than 6 Hours Per Day (ICD-10-PCS; 2017-05-04)
PROC: 0J2SXYZ Change Other Device in Head and Neck Subcutaneous Tissue and Fascia, External Approach (ICD-10-PCS; 2017-05-05)
PROC: 5A1D70Z Performance of Urinary Filtration, Intermittent, Less than 6 Hours Per Day (ICD-10-PCS; 2017-05-06)
DX: T82.868A Thrombosis due to vascular prosthetic devices, implants and grafts, initial encounter (principal); N18.6 End stage renal disease; R65.10 Systemic inflammatory response syndrome (SIRS) of non-infectious origin without acute organ dysfunction; E44.1 Mild protein-calorie malnutrition; I12.0 Hypertensive chronic kidney disease with stage 5 chronic kidney disease or end stage renal disease; E87.5 Hyperkalemia; E11.22 Type 2 diabetes mellitus with diabetic chronic kidney disease; E78.00 Pure hypercholesterolemia, unspecified; E11.51 Type 2 diabetes mellitus with diabetic peripheral angiopathy without gangrene; E11.621 Type 2 diabetes mellitus with foot ulcer; L97.509 Non-pressure chronic ulcer of other part of unspecified foot with unspecified severity; E66.01 Morbid (severe) obesity due to excess calories; Y83.8 Other surgical procedures as the cause of abnormal reaction of the patient, or of later complication, without mention of misadventure at the time of the procedure; Z85.828 Personal history of other malignant neoplasm of skin; Z99.2 Dependence on renal dialysis; Z87.81 Personal history of (healed) traumatic fracture; Z79.4 Long term (current) use of insulin; Z79.82 Long term (current) use of aspirin; Z79.899 Other long term (current) drug therapy; Z68.39 Body mass index [BMI] 39.0-39.9, adult; Y92.89 Other specified places as the place of occurrence of the external cause; Z91.15 Patient's noncompliance with renal dialysis

== ENCOUNTER → 2017-05-25 | Outpatient (CLI) | payer MEDICARE ==
[~2017-05-25] MED LIST changes: +ATIVAN0.5 MG PO
== END ==
LOC: M.WC 05-11 08:00
DX: E11.621 Type 2 diabetes mellitus with foot ulcer (principal); L97.511 Non-pressure chronic ulcer of other part of right foot limited to breakdown of skin; L97.421 Non-pressure chronic ulcer of left heel and midfoot limited to breakdown of skin; L89.310 Pressure ulcer of right buttock, unstageable; L89.890 Pressure ulcer of other site, unstageable; I70.235 Atherosclerosis of native arteries of right leg with ulceration of other part of foot; I70.244 Atherosclerosis of native arteries of left leg with ulceration of heel and midfoot; I70.238 Atherosclerosis of native arteries of right leg with ulceration of other part of lower leg; E11.622 Type 2 diabetes mellitus with other skin ulcer; L98.411 Non-pressure chronic ulcer of buttock limited to breakdown of skin; L97.811 Non-pressure chronic ulcer of other part of right lower leg limited to breakdown of skin; E11.618 Type 2 diabetes mellitus with other diabetic arthropathy; E11.22 Type 2 diabetes mellitus with diabetic chronic kidney disease; I12.0 Hypertensive chronic kidney disease with stage 5 chronic kidney disease or end stage renal disease; N18.6 End stage renal disease; E78.00 Pure hypercholesterolemia, unspecified; K21.9 Gastro-esophageal reflux disease without esophagitis; E11.42 Type 2 diabetes mellitus with diabetic polyneuropathy; F32.9 Major depressive disorder, single episode, unspecified; Z99.2 Dependence on renal dialysis; Z86.718 Personal history of other venous thrombosis and embolism; Z85.828 Personal history of other malignant neoplasm of skin

== ENCOUNTER 2017-06-08 08:14 | Inpatient (IN) | payer MEDICARE ==
[~2017-06-08] VITALS: Ht 165.1 cm; Wt 101.6 kg
[2017-06-08] VITALS (8 sets, daily range): BP systolic 79–148; BP diastolic 52–100
[~2017-06-08 08:14] MED LIST changes: -ATIVAN0.5 MG PO
[2017-06-08 08:55] LABS: HEMATOCRIT 29.8 % (37.0-47.0); HEMOGLOBIN 9.2 gm/dL (12.0-15.0); MCH 28.5 pg (26.0-34.0); MCHC 31.1 g/dL (28.0-37.0); MCV 91.7 fL (80.0-100.0); MPV 9.6 fl. (7.2-11.1); NUCLEATED RBCS 0 /100WBC; PLATELET COUNT* 246 thou/uL (150-400); RBC 3.25 mil/uL (4.20-5.00); RDW-CV 20.5 % (10.5-14.5)
[2017-06-08 09:02] LABS: APTT 32.4 Seconds (25.0-31.3); CALCIUM 7.3 mg/dL (8.5-10.1); CREATININE 12.6 mg/dL (0.6-1.3); INR 1.1; PROTIME 10.8 Seconds (9.20-11.50)
[2017-06-08 09:12] LABS: TROPONIN-I LEVEL 0.2 ng/mL (<0.06)
[2017-06-08 09:14] LABS: ALBUMIN 2.5 g/dL (3.4-5.0); TOTAL BILIRUBIN 0.4 mg/dL (<0.1-1.0); TOTAL PROTEIN 8.7 g/dL (6.4-8.2)
[2017-06-08 09:15] LABS: POTASSIUM 7.3 mmol/L (3.5-5.1)
[2017-06-08 09:24] LABS: ABSOLUTE EOSINOPHILS 0.3 thou/uL (0.0-0.7); ABSOLUTE NEUTROPHILS 14.7 thou/uL (1.6-8.1); ANISOCYTOSIS 1+; PLATELET ESTIMATE ADEQUATE
--- NOTE | 2017-06-08 15:16 | EKG ---
[place] [address] ELECTROCARDIOGRAM REPORT Name: VERNONHARDEEP Room: [address] ADM IN .R.#: [id number] Admission: 06/08/17 Attend Phys: Richa Luu Discharge: Date of : 59 Report #: [id number] THIS REPORT FOR: //name// [facility] ED Test Date: 2017-06-08 Test Time: 08:48:46 Pat Name: HARDEEP JUNIOR Department: Room: [facility] Gender: F Compensation/Benefits Specialist: JOSH Aguila : 1955 Requested By: Jeremie Awan Order Number: [id number] MD: Mono Davey Measurements Intervals [place] Rate: 88 P: AL: QRS: -23 QRSD: 148 T: 84 QT: 452 QTc: 547 Interpretive Statements sinus rhythm with first degree av block LBBB Compared to ECG 05/02/2017 13:52:11 no change Electronically Signed On 06-08-2017 15:16:05 EDUCATION RESEARCH ANALYST by Mono Davey [email or web address] <ELECTRONICALLY SIGNED> By: Mono Davey MD, [facility] 06/08/17 1516 0848 0848 Mono Davey MD, [facility] /EPI
--- NOTE | 2017-06-08 19:29 | NUR ---
PATIENT TOLERATED DIALYSIS WELL. PATIENT YELLED OUT AND CRIED THROUGHOUT ENTIRE SHIFT ALTHOUGH RN ATTEMPTED TO REDIRECT PATIENT SEVERAL TIMES. PATIENT ORIENTED TO QUESTIONS BUT STILL VERY AGGRESSIVE AND VERBALLY ABUSIVE TOWARDS STAFF. PATIENT VERY ANGRY AND CRIED OUT LOUDLY WHEN DEMANDS WERE NOT MET. PATIENT ATTEMPTED TO THROW SELF OUT OF BED, BED ALARM ON AND RN CAUGHT ATTEMPT. PATIENT DENIES THIS ATTEMPT, SECURITY CALLED. PATIENT DENIED ALL ACCOUNTS TO SECURITY. BEDSIDE REPORT GIVEN TO INDER Chaudhry RN.
--- NOTE | 2017-06-08 22:17 | NUR ---
PT. TRANSFERRED TO ROOM 224 AT THIS TIME, REPORT GIVEN TO HARLAN FELIX, QUESTIONS DENIED
[2017-06-09 04:20] VITALS: BP 86/67
--- NOTE | 2017-06-09 05:16 | NUR ---
END SHIFT: PT TO FLOOR FROM ICU AT 2230. RESTLESS, YELLING AND CRYING OUT. ROLLS AROUND IN BED AND CONSISTANTLY REMOVES MONITOR, O2, AND WOUND DRESSINGS. PT DOES NOT FOLLOW SIMPLE COMMANDS. PT CAN ANSWER SOME ORIENTATION QUESTIONS BUT APPEARS CONFUSED. PT HAS TRIED TO USE HER IV TUBING A STRAW. PAIN REPORTED IN WOUNDS/LEGS AND BUTTOCKS. PAIN MEDICATION ORDERED AND GIVEN WITH OK RESULT. CUURENTLY ON 3L NC. MULTIPLE WOUNDS NOTED. PICTURES IN CHART. THE WOUNDS SMELL VERY BAD. SAFETY PRECAUTIONS IN PLACE. VSS. RE-ORIENTED OFTEN AND NECESSARY. WILL CONT TO MONITOR.
[2017-06-09 05:29] LABS: ANION GAP 13 mmol/L (7-16); BUN 34 mg/dL (7-18); CHLORIDE 97 mmol/L (98-107); CHOLESTEROL 157 mg/dL (<200); CO2 29 mmol/L (21-32); GLUCOSE 61 mg/dL (70-99); HDL CHOLESTEROL 37 mg/dL (>40); LDL CHOLESTEROL 74 mg/dL (<100); SODIUM 139 mmol/L (136-145); TC:HDL 4.2 Ratio (Not establshd); TRIGLYCERIDE 233 mg/dL (<150); TROPONIN-I LEVEL 0.37 ng/mL (<0.06); VLDL 47 mg/dL (<40)
[2017-06-09 05:30] LABS: CREATININE 7.3 mg/dL (0.6-1.3); POTASSIUM 4.4 mmol/L (3.5-5.1)
[2017-06-09 05:31] LABS: SERUM ASSESSMENT Clear
[2017-06-09 08:07] VITALS: BP 102/44
--- NOTE | 2017-06-09 10:00 | NUR ---
ASSUMED CARE OF PATIENT AFTER REPORT THIS MORNING. PATIENT AWAKE, ALERT, AND ORIENTED APPROPRIATELY. YELLING AND MOANING WHEN PATIENT IS ALONE IN ROOM. STOPS WHEN NURSING OR VISITORS ENTER THE ROOM. PATIENT ASKED BY THIS NURSE WHY SHE WAS DOING THIS AND PATIENT STATED IT WAS BECAUSE SHE WAS UNCOMFORTABLE. REPOSITIONED PATIENT AND EDUCATED REGARDING FREQUENCY OF PAIN MEDICATION AVAILABLE. PATIENT STATED UNDERSTANDING. PHYSICAL ASSESSMENT COMPLETED AND CHARTED. GIVEN SCHEDULED MEDICATIONS, SEE EMAR FOR DOCUMENTATION. VITAL SIGNS STABLE. OXYGEN SATURATION WITHIN NORMAL LIMITS ON 2 LPM PER NASAL CANULA. PATIENT IN BED AT THIS TIME. IS TO TRANSFER WITH MAXIMUM ASSISTANCE FROM STAFF. USES CALL LIGHT APPROPRIATELY. DENIED OTHER NEEDS. CALL LIGHT WITHIN REACH. NURSING WILL CONTINUE TO MONITOR.
--- NOTE | 2017-06-09 11:47 | CON ---
[address] [address] CONSULTATION Name: HARDEEP JUNOIR Room: [address] IN .R.#: [id number] Admission: 06/08/17 Attend Phys: Richa Luu Discharge: Date of : 59 Report #: [id number] THIS REPORT FOR: //name// CC: Jorge Rodriguez DATE OF SERVICE: 06/08/2017 ATTENDING PHYSICIAN: Dr. Rodriguez. REASON FOR EVALUATION: Sepsis and probable infected sacral decubitus ulcers. HISTORY OF PRESENT ILLNESS: Chart reviewed, the patient examined. This is a 61-year-old woman with diabetes mellitus who has had severe sequelae including end-stage renal disease in the last several years on thrice weekly hemodialysis and has been hospitalized 3 times since beginning of the year. She complains of significant pain associated with her sacral site, lower back. She is quite anxious. She does complain of some dyspnea and chills. She denies specifically having fevers although it is not clear that she has been evaluated. She notes a poor appetite and p.o. intake. She denies significant gastrointestinal-related complaints. On evaluation, there is question of sepsis. Lactic acid was 2.2. White count was 16,000. Troponin was elevated at 0.34 consistent with a non-STEMI. Empirically started on combination therapy with vancomycin, ceftriaxone and azithromycin. ALLERGIES: None known. CURRENT MEDICATIONS: Include pregabalin, aspirin, vancomycin, insulin detemir, lispro, alprazolam and did receive azithromycin and ceftriaxone as well. PAST MEDICAL HISTORY: As described above, the diabetes mellitus, insulin requiring; history of hypertension; high cholesterol; thrombophlebitis; end-stage renal disease on dialysis and diabetic foot ulcers. SOCIAL HISTORY: Nonsmoker and no ethanol. FAMILY HISTORY: Noncontributory. REVIEW OF SYSTEMS: As above. PHYSICAL EXAMINATION: GENERAL: She is quite anxious. She is able to be redirected for brief periods, is in moderate distress, appears chronically ill, acute component. VITAL SIGNS: Temperature 97.6, pulse 81, respirations 22 and blood pressure 109/52. SKIN: Warm, [place] [address] CONSULTATION Name: HARDEEP JUNIOR Room: [address] IN [facility]#: [id number] Admission: 06/08/17 Attend Phys: Richa Luu Discharge: Date of : 59 Report #: [id number] HEENT: Nasal cannula in place. Oxygen in place. NECK: Supple. LUNGS: Few scattered coarse breath sounds. HEART: Regular. I do not appreciate a murmur. ABDOMEN: Soft, nontender and nondistended. Sacral site has two areas of necrotic ulcer that is kind of fixed, tightly adherent, they are tender. There is some only mild degree of surface inflammation noted at the margins. There is no particular purulence noted or drainage. They are tender. GENITOURINARY: Deferred. RECTAL: Deferred. LABORATORY DATA: Troponin as described above elevated at 0.34. Lactic acid serially were 2.2, 2.1 and 1.2. Chest x-ray: No acute pulmonary process. CBC: White count of 16.0, H and H 9.2 and 29.8, platelets of 246 with an absolute neutrophilia. Electrolytes: Sodium 140, potassium 7.3, chloride 97, bicarbonate is 20, anion gap of 23, BUN and creatinine of 75 and 12.6 and glucose of 112. AST of 14, ALT of 16 and total protein is 8.7. Albumin of 2.5. PT of 10.8 and INR of 1.1. ASSESSMENT: Sepsis perhaps secondary to wound source, cannot entirely exclude early pneumonitis. Certainly a line related infection a possibility as well. Continue the combination of antimicrobials with the blood culture results, see how she does clinically and may well need to repeat a chest x-ray. The wounds are fairly well demarcated with significant amount of pain. Continue to offload. Certainly we will discuss with primary physician. Consider surgical evaluation for possible debridement. I do not think she will be a difficult situation in terms of healing. <ELECTRONICALLY SIGNED> By: Jayesh Simmons MD 06/09/17 1147 1614 [id number] Simmons MD /nt
[2017-06-09 11:59] VITALS: BP 105/51
--- NOTE | 2017-06-09 14:07 | NUR ---
MET WITH ONE OF PT'S FRIENDS/DPOA . SHE VOICED CONCERN THAT PT SHOULD BE IN A DIFFERENT LIVING SITUATION AND STATED THAT SHE AND PT'S OTHER DPOA ORIN WERE WORKING ON THAT. THEY HAVE PLANS TO TOUR [facility] TOMORROW. ENCOURAGED HER TO STILL DO THAT. PT WAS HOSPITALIZED HERE IN APR AND WENT TO [place] FOR 18 DAYS, DC'D HOME MID MAY WITH SVITLANA TANG. THEY ARE STILL SEEING PT. PT IS W/C BOUND PER MIKE. IS INCONTINENT OF STOOL AND HAS BEEN STOOLING IN HER RENTED HOME. SHE USES SHOWER BENCH ALSO. 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 PT GOES TO [facility]. PER MIKE, PT HAS BEDSORES, CANNOT MANAGE ON HER OWN AND ISN'T TAKING HER MEDS CORRECTLY. ALSO HAS POOR VISION. SHE STATED SHE THOUGHT PT WOULD BE RELUCTANT TO MOVE. PLAN TO MEET WITH PT TO DISCUSS FURTHER, SHE WAS GETTING A BATH. WILL SEE TOMORROW
--- NOTE | 2017-06-09 15:21 | 2DMMODE ---
[place] [address] 2 D/M-MODE ECHOCARDIOGRAM Name: HARDEEP JUNIOR Room: [address] IN [facility]#: [id number] Admission: 06/08/17 Attend Phys: Yanira Rodriguez Discharge: Date of : 59 Date of Service: 06/09/17 1521 Report #: [id number] THIS REPORT FOR: //name// APPROVED REPORT Study performed: 06/09/2017 10:40:04 EXAM: Comprehensive 2D, Doppler, and color-flow Echocardiogram Patient Location: In-Patient Room #: [facility] Status: routine BSA: 2.15 HR: 87 bpm BP: 105/513 mmHg Rhythm: NSR Other Information Technically limited study due to poor endocardial definition. Indications Abnormal ECG Hyperkalemia Echo Enhancing Agent Indication: Endocardial border delineation Agent(s) / Amount(s) Used: Optison 3 cc 2D Dimensions LVEF(%): 62.39 (>50%) IVSd: 12.97 (7-11mm) LVOT Diam: 19.34 (18-24mm) LVDd: 53.73 mm PWd: 10.14 (7-11mm) Ascending Ao: 31.17 (22-36mm) LVDs: 35.47 (25-40mm) Aortic Root: 29.22 mm Alfaro's LVEF: 62.39 % Volumes Left Atrial Volume (Systole) LA ESV Index: 31.50 mL/m2 Aortic Valve AoV Peak Reji.: 1.80 m/s AO Peak Gr.: 12.91 mmHg LVOT Max P.20 mmHg AO Mean Gr.: 7.22 mmHg LVOT Mean P.66 [place] [address] 2 D/M-MODE ECHOCARDIOGRAM Name: HARDEEP JUNIOR Room: [address] IN M.R.#: [id number] Admission: 06/08/17 Attend Phys: Yanira Rodriguez Discharge: Date of : 59 Date of Service: 06/09/17 1521 Report #: [id number] LVOT Max V: 1.14 m/s AO V2 VTI: 35.51 cm LVOT Mean V: 0.76 m/s CHRISTINE (VTI): 2.09 cm2 LVOT V1 VTI: 25.24 cm Mitral Valve E/A Ratio: 1.38 MV Decel. Time: 178.19 ms MV E Max Reji.: 1.12 m/s MV PHT: 51.67 ms MVA (PHT): 4.26 cm2 TDI E/Lateral E': 7.47 E/Medial E': 11.20 Medial E' Reji.: 0.10 m/s Lateral E' Reji.: 0.15 m/s Pulmonary Valve PV Peak Reji.: 1.07 m/s PV Peak Gr.: 4.57 mmHg Tricuspid Valve TR Peak Gr.: 27.79 mmHg RVSP: 32.00 mmHg Left Ventricle The left ventricle is normal size. There is normal LV segmental wall motion. There is normal left ventricular wall thickness. Left ventricular systolic function is normal. LVEF is 55-60%. The left ventricular diastolic function is normal. Right Ventricle The right ventricle is normal size. The right ventricular systolic function is normal. Atria Left atrium is mildly dilated. The right atrium size is normal. Aortic Valve Mild aortic valve sclerosis. No aortic regurgitation is present. There is no aortic valvular stenosis. Mitral Valve There is mitral annular calcification. Mild mitral regurgitation. No evidence of mitral valve stenosis. Tricuspid Valve The tricuspid valve is normal in structure[place] [address] 2 D/M-MODE ECHOCARDIOGRAM Name: HARDEEP JUNIOR Room: [address] IN [facility]#: [id number] Admission: 06/08/17 Attend Phys: Yanira Rodriguez Discharge: Date of : 59 Date of Service: 06/09/17 1521 Report #: [id number] regurgitation. The RVSP is 30-35 mmHg. Pulmonic Valve The pulmonary valve is normal in structure. There is no pulmonic valvular regurgitation. Great Vessels The aortic root is normal in size. IVC is normal in size and collapses with >50% inspiration Pericardium There is no pericardial effusion. <Conclusion> The left ventricle is normal size. There is normal left ventricular wall thickness. Left ventricular systolic function is normal. LVEF is 55-60%. The left ventricular diastolic function is normal. Left atrium is mildly dilated. Mild aortic valve sclerosis. There is no aortic valvular stenosis. There is mitral annular calcification. Mild mitral regurgitation. Moderate tricuspid regurgitation. The RVSP is 30-35 mmHg. <ELECTRONICALLY SIGNED> By: Asif Guevara MD, FACC 06/09/17 1521 1521 1521 Asif Guevara MD, FACC /INF
--- NOTE | 2017-06-09 15:39 | EKG ---
[place] [address] ELECTROCARDIOGRAM REPORT Name: JUNIORHARDEEP Carey Room: [address] ADM IN M.R.#: [id number] Admission: 06/08/17 Attend Phys: Richa Luu Discharge: Date of : 59 Report #: [id number] THIS REPORT FOR: //name// [facility] Test Date: 2017-06-09 Test Time: 08:40:21 Pat Name: HARDEEP JUNIOR Department: Room: [facility] Gender: F Escapement Matcher: : 1955 Requested By: Mono Davey Order Number: [id number] MD: Asif Guevara Measurements Intervals [place] Rate: 80 P: 41 SD: 153 QRS: -21 QRSD: 116 T: 108 QT: 440 QTc: 508 Interpretive Statements Sinus rhythm Left bundle-branch block Compared to ECG 06/08/2017 08:48:46 No significant changes noted Electronically Signed On 06-09-2017 15:38:54 ANIMAL SHELTER MANAGER by Asif Guevara [email or web address] <ELECTRONICALLY SIGNED> By: Asif Guevara MD, [facility] 06/09/17 1538 9 9 Asif Guevara MD, [facility] /EPI
[2017-06-09 15:45] VITALS: BP 126/63
--- NOTE | 2017-06-09 17:38 | NUR ---
PATIENT BECAME HYPOGLYCEMIC BEFORE DINNER THIS EVENING. GIVEN JUICE AND FED HER DINNER AND SUGAR IS NOW WITHIN NORMAL LIMITS. PHYSICIAN MADE AWARE AND RECEIVED ORDERS TO HOLD ALL INSULIN THIS EVENING. PATIENT CONTINUES TO MOAN AT TIMES. GIVEN PRN MEDICATIONS, SEE EMAR FOR DOCUMENTATION. REDRESSED WOUNDS TO PATIENT'S FEET WITH KERLIX AND CHRIS WRAP. CLEANSED WITH WOUND CLEANSER PRIOR TO REDRESSING. DENIES NEEDS AT THIS TIME. CALL LIGHT WITHIN REACH. NURSING WILL CONTINUE TO MONITOR.
--- NOTE | 2017-06-09 17:48 | CON ---
[address] [address] CONSULTATION Name: HARDEEP JUNIOR Room: [address] IN M.R.#: [id number] Admission: 06/08/17 Attend Phys: Richa Luu Discharge: Date of : 59 Report #: [id number] THIS REPORT FOR: //name// CC: Dr. Jorge Rodriguez DATE OF SERVICE: 06/08/2017 HISTORY OF PRESENT ILLNESS: The patient is a 61-year-old single white female who I was asked to see in the hospital today after she was noted to have an abnormal troponin. The patient has had multiple hospitalizations here at [facility]. She has a long history of diabetes, developed end-stage renal disease. She has been on dialysis for the past 2 years. She goes to hemodialysis 3 days a week. Her fistula clotted. She now has a temporary dialysis catheter in place. She is also morbidly obese, standing 5 feet 5 inches, weighing 230 pounds. She is very immobile. Has had history of decubitus ulcers. She was actually just admitted here to [facility] last month with bilateral pleural effusions, bronchitis, edema. She was discharged to correction. She apparently called paramedics complaining that she was fatigued and had bedsores. Apparently, she was found at home on the floor with feces. She has had a recent ankle fracture and her foot is in a boot. She has a wheelchair. She does not have a car. She denied any fever, chest pain, shortness of breath, palpitations, syncope. PAST MEDICAL HISTORY: Otherwise, significant for no other major surgical procedures. She does have a history of hypertension and diabetes. MEDICATIONS: Consist of aspirin, insulin, pravastatin, Neurontin, carvedilol. ALLERGIES: She has no known drug allergies. FAMILY HISTORY: Positive for heart disease. SOCIAL HISTORY: She is , lives by herself in [place]. She is a retired teacher. She has no children. No smoking or alcohol abuse. REVIEW OF SYSTEMS: She denied a history of stroke, asthma, peptic ulcer disease, liver disease. She has a skin cancer removed in the past. No history of psychiatric illness. PHYSICAL EXAMINATION: GENERAL: Revealed an obese middle-aged female lying in bed. She was moaning frequently. VITAL SIGNS: She had a blood pressure of 110/60, pulse is 80, she is afebrile. HEENT: She was anicteric, conjunctiva pink[place] [address] CONSULTATION Name: HARDEEP JUNIOR Room: [address]#: [id number] Admission: 06/08/17 Attend Phys: Richa Luu Discharge: Date of : 59 Report #: [id number] NECK: Veins difficult to assess due to obesity. CHEST: Clear to auscultation. CARDIOVASCULAR: Regular rate and rhythm. ABDOMEN: Obese, soft, nontender. EXTREMITIES: Had trace edema. SKIN: Cool and dry. NEUROLOGIC: Nonfocal. PSYCHIATRIC: Mood was depressed. LABORATORY DATA: She had an ECG on admission that showed a sinus rhythm, first degree AV block and left bundle branch block. Her workup, she actually had an echocardiogram in 2014 that showed ejection fraction 55%. No pericardial effusion. She had a chest x-ray this morning that showed cardiomegaly, clear lung romero. Her lab work today, sodium 140, potassium is 7.3, creatinine 12.6, glucose 112, albumin 2.5, troponin 0.34. BNP 32,945. Her white blood cell count 16.0, hemoglobin 9.2. It was actually 7.9 in April. IMPRESSION AND RECOMMENDATIONS: 1. Borderline troponin. No evidence of acute myocardial infarction. In light of her multiple medical problems, recommend a conservative approach. I would consider an aspirin a day. Recommend no further cardiac evaluation. 2. End-stage renal disease. The patient is on hemodialysis. 3. Morbid obesity. 4. Recent ankle fracture. 5. Depression. <ELECTRONICALLY SIGNED> By: Mono Davey MD, FACC 06/09/17 1748 1723 1908Mono Davey MD, FACC /nt
[2017-06-09 20:00] VITALS: BP 94/48
[2017-06-10] VITALS: BP 125/51
[2017-06-10 08:00] VITALS: BP 102/50
[2017-06-10 09:10] LABS: M-SPIKE 0.1 g/dL (Not Observed)
--- NOTE | 2017-06-10 11:47 | NUR ---
CONTINUE TO FOLLOW, MET WITH PT'S DPOA, NATHANAEL HUNTER AND WILEY LINO, ALSO DR DO AND OSCAR FROM [facility]. PER DR DO, HE HAS DISCUSSED WITH PT THAT SHE PROBABLY NEEDS SNF AND MAY NOT BE SAFE TO RETURN HOME. NAYELI SR AND WILEY AGREE AND FEEL PT NEEDS A DIFFERENT LIVING SITUATION, PROBABLY SNF TO LTC. PT RENTS HER HOME AND PAYS FOR PRIVATE DUTY, TRANSPORT TO DIALYSIS 3X/WK AND COMPONENT TECHNICIAN. SHE DOESN'T HAVE A 2ND INSURANCE BUT THEY ARE WILLING TO ASSIST HER WITH APPLYING. PT WAS JUST RELEASED FROM [facility] ON 05/27 PER WILEY. WAS READMITTED 06/08. PER OSCAR, PT HAS BEEN 'HOTLINED' ALSO. DISCUSSED POSSIBLE FACILITIES PER DPOA REQUEST, THEY WANT TO HAVE [facility], [facility], [place] AND [facility] CHECKED. SPOKE WITH [facility], NO LTC BEDS AVAILABLE. SPOKE WITH SURENDRA/MARYSE, THEY MAY HAVE AN OPTION, FAXED REFERRAL OVER AND SURENDRA WILL COME SEE PT. CALL TO [facility], THEY HAVE OPTIONS AVAILABLE, FAXED REFERRAL OVER. DPOAS LEFT TO GO [facility]. AWAIT PT TO RETURN FROM DIALYSIS, WILL MEET WITH HER THIS AFTERNOON TO DISCUSS FURTHER
--- NOTE | 2017-06-10 14:41 | NUR ---
ASSUMED RESPONSIBILITY OF PT THIS AM PT VERY DROWSY THIS AM DID NOT WANT TO WAKE UP ALERT TO SELF ONLY DIALYSIS DONE AND 2L TAKEN OFF DPOA CAME IN TO TALK TO PT ABOUT PLACEMENT AND PT WAS NOT HAPPY ABOUT THIS PT BEGAN CRYING WHEN THIS NURSE WENT IN TO TALK WITH HER PT STATES ,"MY BOTTOM HURTS, I HAVE SORES" PT STATED SHE GOT THEM AT A FACILITY, BUT A LOT OF THEM LOOK MORE FRESH THAN THAT WILL DO WOUND CARE TURN EVERY 2 HOURS NSR ON THE MONITOR NOW M/S STATUS
--- NOTE | 2017-06-10 14:45 | NUR ---
PT COMPLAINS OF PAIN FREQUENTLY T/O BODY AND GIVEN HYDROCODONE AT 1420
--- NOTE | 2017-06-10 15:36 | NUR ---
HEARD BACK FROM [facility]. PT HAS BEEN ACCEPTED TO [facility], NAYLA AWARE THAT IT WILL NOT BE UNTIL TUESDAY. ORIN AND WILEY/DPOAS ASKED THAT [facility] BE CHECKED, HAVE LEFT MESSAGE AND AWAIT CALL BACK. WILEY ALSO ASKED ABOUT [facility], MADE HER AWARE THAT THEY ARE NOT TAKING MEDICAID PENDING. THEY HAVE A WAITING LIST AND DON'T TAKE MEDICAID PTS UNLESS THEY HAVE PRIVATE PAID FOR OVER A YEAR.
[2017-06-10 16:06] VITALS: BP 116/37
[2017-06-10 16:09] LABS: IgA 230 mg/dL (87-352); IgG 1060 mg/dL (700-1600); IgM 91 mg/dL (26-217)
--- NOTE | 2017-06-10 16:27 | NUR ---
WOUND CARE NOTE: CONSULT RECEIVED FOR MULTIPLE OPEN WOUNDS. ATTEMPTED MULTIPLE TIMES TO SEE PATIENT, BUT HAD OTHER SPECIALTIES IN SEEING HER. WILL ATTEMPT TO SEE TUESDAY IF STILL HERE. RECOMMENDATIONS OFFLOAD BILATERAL HEELS SIDE TO SIDE TURNING-KEEP OFF WOUNDS. LIMIT HOB <30 DEGREES ENCOURAGE GOOD NUTRITION AND HYDRATION PAINT DRY ESCHARS WITH BETADINE DAILY AFTER CLEANSING.
[2017-06-10 20:00] VITALS: BP 106/58
[2017-06-11] VITALS: BP 111/50
--- NOTE | 2017-06-11 05:02 | NUR ---
ASSUMED CARE OF PATIENT AT 1900 THE PATIENT REMAINS ON BEDREST THE PATIENT O2 SAT IS MAINTAINED ON 3L NC SHE CONTINUES TO BE BED REST DURING NIGHT PATIENT CALLED OUT [facility] AND NON PHARM INTERVENTIONS AT TIMES WHEN QUESTIONED WHAT WAS WRONG SHE WOULD STATE I CANT SEE SAFETY INTERVENTIONS CONTINUE BED LOWERED WHEELS LOCKED CALL LIGHT IN REACH SIDE RAILS UP REPORT TO BE GIVEN TO JACIEL CLAROS
[2017-06-11 08:00] VITALS: BP 132/65
[2017-06-11 11:45] LABS: HEMATOCRIT 22.2 % (37.0-47.0); HEMOGLOBIN 7.1 gm/dL (12.0-15.0); MCH 28.5 pg (26.0-34.0); MCHC 31.9 g/dL (28.0-37.0); MCV 89.2 fL (80.0-100.0); MPV 9.6 fl. (7.2-11.1); RBC 2.49 mil/uL (4.20-5.00); RDW-CV 20.4 % (10.5-14.5); WBC 12.4 thou/uL (4.0-11.0)
[2017-06-11 11:49] LABS: INR 1.1
[2017-06-11 11:53] LABS: CALCIUM 7.9 mg/dL (8.5-10.1); CREATININE 6.8 mg/dL (0.6-1.3); MAGNESIUM 1.6 mg/dL (1.8-2.4); POTASSIUM 4.3 mmol/L (3.5-5.1); TOTAL BILIRUBIN 0.4 mg/dL (<0.1-1.0); TOTAL PROTEIN 7.5 g/dL (6.4-8.2)
--- NOTE | 2017-06-11 13:13 | NUR ---
IGOR SPOKE TO THE PATIENT AND HER FRIEND WILEY, AND WILEY INFORMS THAT SHE HAD VISITED [facility] AND DID NOT LIKE THAT FACILITY, AND DOES NOT WANT THE PATIENT TO GO THERE. WILEY STATES THAT SHE VISITED [facility] [place] AND WOULD LIKE A REFERRAL SENT THERE. CM ATTEMPTED TO CONTACT ADMISSIONS AT [facility] AND LEFT A MESSAGE TO RETURN CALL TO . IGOR ALSO FAXED A SKILLED REFERRAL TO [facility]. CM WILL REMAIN AVAILABLE TO ASSIST AND FOLLOW NEEDED.
[2017-06-11 17:00] VITALS: BP 107/56
[2017-06-12 04:19] VITALS: BP 121/51
--- NOTE | 2017-06-12 04:37 | NUR ---
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
[2017-06-12 05:29] LABS: ABSOLUTE BASOPHILS 0.1 thou/uL (0.0-0.2); ABSOLUTE EOSINOPHILS 0.4 thou/uL (0.0-0.7); ABSOLUTE LYMPHOCYTES 2.8 thou/uL (0.8-5.3); ABSOLUTE MONOCYTES 1.1 thou/uL (0.0-1.2); ABSOLUTE NEUTROPHILS 7.1 thou/uL (1.6-8.1); EOSINOPHILS 3.6 %; HEMATOCRIT 20.8 % (37.0-47.0); LYMPHOCYTES 24.2 %; MCH 28.8 pg (26.0-34.0); MCHC 31.5 g/dL (28.0-37.0); MCV 91.3 fL (80.0-100.0); MONOCYTES 9.8 %; MPV 9.6 fl. (7.2-11.1); NUCLEATED RBCS 0 /100WBC; PLATELET COUNT* 213 thou/uL (150-400); POLYS 61.4 %; RBC 2.28 mil/uL (4.20-5.00); RDW-CV 20.3 % (10.5-14.5); WBC 11.6 thou/uL (4.0-11.0)
[2017-06-12 05:58] LABS: HEMOGLOBIN 6.6 gm/dL (12.0-15.0)
[2017-06-12 06:18] LABS: ANISOCYTOSIS 2+; GIANT PLATELETS RARE; HYPOCHROMASIA 3+; LARGE PLATELETS FEW; MACROCYTES 1+; PLATELET ESTIMATE ADEQUATE
[2017-06-12 06:26] LABS: ALBUMIN 1.9 g/dL (3.4-5.0); CALCIUM 8.1 mg/dL (8.5-10.1); MAGNESIUM 1.8 mg/dL (1.8-2.4); POTASSIUM 3.9 mmol/L (3.5-5.1); TOTAL BILIRUBIN 0.4 mg/dL (<0.1-1.0); TOTAL PROTEIN 7.2 g/dL (6.4-8.2)
[2017-06-12 06:27] LABS: CREATININE 8.1 mg/dL (0.6-1.3)
[2017-06-12 08:00] VITALS: BP 123/55
[2017-06-12 08:55] VITALS: BP 126/61; BP 128/68; BP 134/64; BP 134/65; BP 139/67
--- NOTE | 2017-06-12 11:14 | NUR ---
PATIENT TRANSFERED TO UNIT, ON FLOOR AT 1105. PATIENT A&OX4, ON 3L O2 VIA NC. IV RIGHT FOREARM. CURRENTLY RECIEVING BLOOD, NEXT VITAL ARE KIRAN AT 1145. ORIENTED TO ROOM, ALL BELONGINGS WITHIN REACH, CALL LIGHT AT BEDSIDE. C/O PAIN IN BOTTOM. NO OTHER CONCERNS AT THIS TIME. WILL CONTINUE TO MONITOR.
--- NOTE | 2017-06-12 11:42 | NUR ---
PT WENT UP TO 3W REPORT GIVEN TO JOHNNY RENDON STILL GOING STARTED A NEW IV IN RFA PT C/O PAIN FREQUENTLY
[2017-06-12 16:11] LABS: GLYCOHEMOGLOBIN (HGB A1C) 5.3 % (4.8-5.6)
[2017-06-12 16:50] VITALS: BP 116/44
--- NOTE | 2017-06-12 16:59 | NUR ---
PATIENT A&OX4, FORGETFUL. ON 3L O2, IV RIGHT FOREARM SALINE LOCK WITH ABX. RECIEVED 1 UNIT OF BLOOD TODAY, TOLLERATED FINE WITH NO REACTION, HGB IMPROVED. BEDREST, PATIENT UNABLE TO BEAR ANYWEIGHT ON RIGHT FOOT. RIGHT FOOT IS NOT CONNECTED TO ANKLE. PICTURES TAKEN OF ALL WOUNDS, DRESSINGS CHANGED. C/O PAIN TO BOTTOM AND LOWER BACK, PARTIAL RELIEF WITH MEDICATION. PATIENT REPORTS SHE CAN NOT FEEL HER LOWER EXTREMETIES, FEELING WAS NOTED TO BE ABSENT THROUGH ABOVE THE KNEE. NO OTHER CONCERNS AT THIS TIME. APPROPRIATE AND COOPRATIVE WITH CARE.
[2017-06-12 19:50] VITALS: BP 134/76
[2017-06-13 03:30] VITALS: BP 126/54
[2017-06-13 05:26] LABS: HEMATOCRIT 25.3 % (37.0-47.0); HEMOGLOBIN 7.9 gm/dL (12.0-15.0); MCH 28.3 pg (26.0-34.0); MCHC 31.4 g/dL (28.0-37.0); MCV 90.3 fL (80.0-100.0); MPV 9.8 fl. (7.2-11.1); RBC 2.8 mil/uL (4.20-5.00); RDW-CV 20.2 % (10.5-14.5); WBC 13.1 thou/uL (4.0-11.0)
[2017-06-13 05:46] LABS: ALBUMIN 1.9 g/dL (3.4-5.0); CALCIUM 8.2 mg/dL (8.5-10.1); MAGNESIUM 1.9 mg/dL (1.8-2.4); POTASSIUM 4.6 mmol/L (3.5-5.1); TOTAL BILIRUBIN 0.4 mg/dL (<0.1-1.0); TOTAL PROTEIN 7.6 g/dL (6.4-8.2)
[2017-06-13 05:48] LABS: CREATININE 9.9 mg/dL (0.6-1.3)
--- NOTE | 2017-06-13 06:38 | NUR ---
ASSESSMENT COMPLETE. PT VERY SLEEPY MOST OF THE NIGHT. PT GIVEN PRN PAIN MEDICATION ONCE DURING THE NIGHT. PT IS ON 3L PER NC WITH [place] SATS. PT DENIES N/V. PT TURNED Q2 FOR SKIN INTEGRITY. SEE ASSESSMENT AND VITALS FOR OTHER DETAILS. CALL LIGHT WITHIN REACH, WILL CONTINUE PLAN OF CARE
--- NOTE | 2017-06-13 08:30 | NUR ---
RECEIVED VMAIL FROM MARY/[facility] RE: REFERRAL. [facility] DECLINED PT, DO NOT HAVE AN APPROPRIATE BED
[2017-06-13 11:26] LABS: % SATURATION 14 % (20-39); IRON 21 ug/dL (50-175)
--- NOTE | 2017-06-13 13:39 | NUR ---
CM SPOKE TO PATIENT AND AND DPOA ORIN TO INFORM THAT [facility] DECLINED ACCEPTANCE OF PATIENT. ORIN STATES THAT SHE WOULD LIKE A REFERRAL SENT TO [facility]. RADHA WITH [facility] INFORMS THAT PATIENT HAS ONLY HAS 6 SKILLED DAYS LEFT TO USE AND THEN WOULD NEED TO PAY A CO-PAY AMOUNT OF $169.00 PER DAY FOR SKILLED. CM INFORMED PATIENT AND DPOA OF THIS INFO AND THEY INFORM CM THAT THEY RECIEVED INFO ON IN-HOME CARE AND WOULD LIKE A HOSPICE INFORMATIONAL VISIT SET-UP WITH A HOSPICE THAT WILL ALLOW THE PATIENT TO CONTINUE DIALYSIS. IGOR SPOKE TO REMINGTON WITH [facility] AND SHE INFORMS THAT [facility] IS ABLE TO PROVIDE HOSPICE CARE WITH [facility], AND ARE ABLE TO COME TO THE HOSPITAL FOR AN INFORMATIONAL VISIT TOMORROW. CM WILL REMAIN AVAILABLE TO ASSIST AND FOLLOW NEEDED.
[2017-06-13 14:13] VITALS: BP 113/63
[2017-06-13 16:00] VITALS: BP 120/78
--- NOTE | 2017-06-13 18:08 | NUR ---
WOUND CARE NOTE: CONSULT RECEIVED FOR WOUNDS. PATIENT PRESENTS WITH ISCHEMIC WOUND TO THE RIGHT LATERAL FOOT/5TH TOE WOUND MEASURES 4X7X0.1. BLACK, DRY ESCHAR. NO DRAINAGE NOTED. MATHIEU-WOUND DOES HAVE ERYTHEMA. AREA WAS CLEANSED WITH WOUND CLEANSER, PATTED DRY. PAINTED WITH BETADINE. RIGHT LATERAL LEG: FULL THICKNESS ULCERATION MEASURING 1.6X1.5X0.1. BLACK, RAY, ADHERENT SLOUGH PRESENT TO 100% OF WOUND BED. WOUND WAS CLEANSED WITH WOUND CLEANSER, PATTED DRY. PAINTED WITH BETADINE AND ALLOWED TO DRY. LEFT HEEL: BLACK, DRY, STABLE ESCHAR MEASURING 13.5X10. MATHIEU-WOUND ERYTHEMA. WOUND WAS CLEANSED WITH WOUND CLEANSER, PATTED DRY. PAINTED WITH BETADINE AND ALLOWED TO DRY. RIGHT BUTTOCK: UNSTAGEABLE PRESSURE ULCER MEASURING 4.5X8.5X0.1. YELLOW, MOIST, ADHERENT SLOUGH PRESENT TO 85% OF THE WOUND BED. 15% OF WOUND BED IS RED, MOIST, NON-GRANULAR TISSUE. MATHIEU-WOUND INTACT. CLEANSED AREA WITH WOUND CLEANSER, PATTED DRY. SKIN PREPPED. APPLIED AQUACEL AG TO WOUND BED AND SECURED WITH EXUDERM THEN TEGADERM. RIGHT FLANK: MULTIPLE, UNSTAGEABLE PRESSURE ULCERS, CLUSTERED MEASURE 2.5X9.7X0.1. YELLOW, MOIST, ADHERENT SLOUGH TO 100% OF WOUND BEDS. CLEANSED WITH WITH WOUND CLEANSER, PATTED DRY. SKIN PREPPED. APPLIED AQUACEL AG TO WOUND BED AND SECURED WITH EXUDERM THEN TEGADERM. PATIENT WAS TURNED TO LEFT SIDE USING WEDGES. APPLIED BILATERAL HEELMEDIX BOOTS. PATIENT SLEPT THROUGH ASSESSMENT. UNABLE TO EDUCATE AT THIS TIME. RECOMMEND TURN Q2 HOURS, KEEP OFF WOUNDS HEELMEDIX BOOTS TO BILATERAL FEET WHEN IN BED ENCOURAGE GOOD NUTRITION AND HYDRATION FOR WOUND HEALING
--- NOTE | 2017-06-13 18:27 | NUR ---
PATIENT HAS BEEN ALERT PART OF THE DAY, HAS CRIED ON AND OFF ALL DAY, PAIN MEDICATION AND ANXIETY MEDICATION GIVEN. PATIENT HAD DIALSYSIS TODAY. HAS 3 LITERS OF OXYGEN THROUGH NASAL CANNULA. IV IN RIGHT FORARM WORKS WELL FOR IV ANTIBIOTICS. CALL LIGHT IS IN REACH, BED ALARM IS ON AND PATIENT HAS BEEN TURNED FREQUENTLY TODAY. WILL CONTINUE TO MONITOR.
[2017-06-13 23:55] VITALS: BP 116/47
[2017-06-14 05:12] LABS: HEMATOCRIT 24.9 % (37.0-47.0); HEMOGLOBIN 7.9 gm/dL (12.0-15.0); MCH 28.5 pg (26.0-34.0); MCHC 31.6 g/dL (28.0-37.0); MCV 90.4 fL (80.0-100.0); MPV 9.4 fl. (7.2-11.1); RBC 2.76 mil/uL (4.20-5.00); RDW-CV 20.1 % (10.5-14.5); WBC 14.2 thou/uL (4.0-11.0)
[2017-06-14 05:21] LABS: ALBUMIN 1.9 g/dL (3.4-5.0); CALCIUM 8.6 mg/dL (8.5-10.1); MAGNESIUM 1.9 mg/dL (1.8-2.4); POTASSIUM 4.1 mmol/L (3.5-5.1); TOTAL BILIRUBIN 0.4 mg/dL (<0.1-1.0); TOTAL PROTEIN 7.7 g/dL (6.4-8.2)
[2017-06-14 05:22] LABS: CREATININE 6.8 mg/dL (0.6-1.3)
--- NOTE | 2017-06-14 06:05 | NUR ---
PATIENT SLEPT PART OF THE NIGHT. PATIENT CONTINUES TO CRY LOUDLY IN PAIN. EARLY IN THE SHIFT PATIENT ACCIDENTLY PULLED OUT IV AND STATED SHE DID NOT WANT STUCK AGAIN THAT THE PAIN PILL WOULD BE OKAY FOR PAIN. ABOUT 0300 PATIENT WAS IN SEVERE PAIN AND WAS NOT TIME FOR THE PAIN PILL PATIENT AGREED TO LET THE GRAPE CUTTER PUT AN IV IN. IV REMAINS SALINE LOCKED. PATIENT WAS GIVEN IV PAIN MEDICINE ONCE. PLAN IS FOR HOSPICE TO MEET WITH PATIENT THIS MORNING. WILL CONTINUE TO MONITOR.
[2017-06-14 07:55] VITALS: BP 121/61
[2017-06-14 13:12] VITALS: BP 121/61
--- NOTE | 2017-06-14 14:48 | NUR ---
CM SPOKE TO THE PATIENT AND MELISSA SR TO DISCUSS HER INFORMATIONAL VISIT WITH [facility]. ORIN INFORMS THAT THE PATIENT IS ACCEPTANCE OF [facility] AND PLAN TO D/C TO [facility]. CM SPOKE TO RADHA AND SHE CONFIRMS THIS INFO. CM FAXED [facility] PATIENTS D/C ORDERS. [facility] TO INFORM OF THE NEED FOR TRANSPORT AND FAXED PATIENT TRANSFER FORM. PATIENT TO D/C TO [facility] WITH [facility] AT 1530. CM WILL REMAIN AVAILABLE TO ASSIST AND FOLLOW NEEDED.
[2017-06-14 15:19] VITALS: BP 121/61
[2017-06-14] MEDS ORDERED: HYDROCODONE-AP1 EAC6 PO (15:21)
[2017-06-14] MEDS ORDERED: ATIVAN0.5 MG PO (15:21)
--- NOTE | 2017-06-14 16:35 | NUR ---
PATIENT A&OX4, FORGETFUL, 3L O2 VIA NC, IV RIGHT HAND SALINE LOCK. NON AMBULATORY, Q2 TURN, USING BEDPAN. C/O BACK/BOTTOM PAIN, PARTIAL TO MINIMAL RELIEF WITH MEDICATION. PATIENT D/C TO [facility] ON HOSPICE CARE. CALLED REPORT AND SPOKE WITH AIME, VERBALIZES UNDERSTANDING, NO FURTHER QUESTIONS AT THIS TIME. LEFT UNIT VIA CART ON AMBULANCE WITH ALL BELONGINGS, NOTHING LEFT BEHIND. APPROPRIATE AND COOPORATIVE WITH CARE.
--- NOTE | 2017-06-25 13:26 | CON ---
[address] [address] CONSULTATION Name: HARDEEP JUNIOR Room: [address] IN M.R.#: [id number] Admission: 06/08/17 Attend Phys: Richa Luu Discharge: 06/14/17 Date of : 59 Report #: [id number] THIS REPORT FOR: //name// CC: Jorge Rodriguez DATE OF SERVICE: 06/08/2017 CONSULTING PHYSICIAN: Dr. Rodriguez. REASON FOR CONSULTATION: End-stage kidney disease. HISTORY OF PRESENT ILLNESS: A 61-year-old female with history of end-stage kidney disease who missed dialysis on Tuesday because of diarrhea and was admitted with potassium of 7.3 and complaints of weakness. She is seen on dialysis, is tolerating treatment well. Initially her line was not working very well. A cath filler was instilled and the catheter is now working. She did not have a dressing on her catheter when she came in, she has had the dialysis catheter in for about [address] Marcos. She currently has no new complaints other than feeling weak. REVIEW OF SYSTEMS: Constitutional, psych, heme, eyes, ENT, respiratory, cardiac, GI, , endocrine, all negative except as documented above. PAST MEDICAL HISTORY: 1. End-stage kidney disease. 2. Insulin-dependent diabetes. 3. Hypertension. 4. Dyslipidemia. 5. Diabetic foot ulcers. FAMILY HISTORY: Not pertinent in this 61-year-old female. SOCIAL HISTORY: No tobacco. CURRENT MEDICATIONS: Reviewed. PHYSICAL EXAMINATION: VITAL SIGNS: Blood pressure 109/52, pulse 81, respirations 22 and temperature 36.4. GENERAL: No acute distress. EYES: Extraocular movements intact. EARS: Externally normal. CARDIOVASCULAR: Regular rate. LUNGS: No crackles. ABDOMEN: [place] [address] CONSULTATION Name: HARDEEP JUNIOR Room: [address]#: [id number] Admission: 06/08/17 Attend Phys: Richa Luu Discharge: 06/14/17 Date of : 59 Report #: [id number] MUSCULOSKELETAL: Nontender. PSYCHIATRIC: Awake, alert. LINES: Right chest tunneled dialysis catheter with some mild erythema, no drainage, no tenderness at the exit site or along the tunnel. No purulence. LABORATORY DATA: White cell count 16, hemoglobin 9.2, platelets 246. Sodium 140, potassium 7.3, chloride 97, bicarbonate 20, BUN 75, creatinine 12.6, glucose 112, calcium 7.3. ASSESSMENT: 1. End-stage kidney disease, hemodialysis Tuesday, Tuesday and Tuesday at the [facility], on hemodialysis for 2 years. 2. Hyperkalemia in the setting of missed dialysis on Tuesday with last dialysis being on Tuesday. 3. Anemia. 4. Hypoalbuminemia with albumin of 2.5. PLAN: 1. Continue dialysis. The patient was seen on dialysis, tolerating treatment well on a low potassium dialysate. 2. We will check cultures. 3. We will follow closely for dialysis needs and lab will be checked again in the a.m. Thank you for requesting my opinion in the care and management of this patient. <ELECTRONICALLY SIGNED> By: Radhika Mendez MD 06/25/17 1326 1725 [id number] maria Mendez MD /nt
== END 2017-06-14 16:15 | disposition hospice, inpatient (51) | DRG 871 ==
LOC: M.ERS 08:14 → M.2W 09:37 → M.TBA-ER 09:37 → M.ICU 12:45 → M.2W 22:18 → M.3W 06-12 11:09
PROVIDERS: Emergency Medicine Emergency Medical Services; Family Medicine; Internal Medicine Cardiovascular Disease; Internal Medicine Infectious Disease; Internal Medicine Nephrology; Specialist; ADMIT Internal Medicine
PROC: 5A1D70Z Performance of Urinary Filtration, Intermittent, Less than 6 Hours Per Day (ICD-10-PCS; 2017-06-10)
PROC: 30233N1 Transfusion of Nonautologous Red Blood Cells into Peripheral Vein, Percutaneous Approach (ICD-10-PCS; 2017-06-12)
PROC: 5A1D70Z Performance of Urinary Filtration, Intermittent, Less than 6 Hours Per Day (ICD-10-PCS; principal; 2017-06-13)
DX: A41.9 Sepsis, unspecified organism (principal); J96.01 Acute respiratory failure with hypoxia; N18.6 End stage renal disease; J15.6 Pneumonia due to other Gram-negative bacteria; I21.A1 Myocardial infarction type 2; I50.21 Acute systolic (congestive) heart failure; I13.2 Hypertensive heart and chronic kidney disease with heart failure and with stage 5 chronic kidney disease, or end stage renal disease; M86.9 Osteomyelitis, unspecified; I96 Gangrene, not elsewhere classified; E11.22 Type 2 diabetes mellitus with diabetic chronic kidney disease; F32.9 Major depressive disorder, single episode, unspecified; E87.5 Hyperkalemia; D64.9 Anemia, unspecified; E78.00 Pure hypercholesterolemia, unspecified; E83.39 Other disorders of phosphorus metabolism; D63.1 Anemia in chronic kidney disease; L89.90 Pressure ulcer of unspecified site, unspecified stage; E11.621 Type 2 diabetes mellitus with foot ulcer; L97.509 Non-pressure chronic ulcer of other part of unspecified foot with unspecified severity; E11.69 Type 2 diabetes mellitus with other specified complication; Z82.49 Family history of ischemic heart disease and other diseases of the circulatory system; Z87.81 Personal history of (healed) traumatic fracture; Z85.828 Personal history of other malignant neoplasm of skin; Z99.2 Dependence on renal dialysis; Z79.82 Long term (current) use of aspirin; Z79.899 Other long term (current) drug therapy